=== PATIENT | female | born 1960 | race Caucasian/White ===

== ENCOUNTER → 2016-12-26 | Outpatient (CLI) | payer BC ==
[2016-12-26 19:25] LABS: BASO # 0.2 K/mm3 (0.0-0.2); BASO % 2.6 % (0.0-1.0); EOS # 0.3 K/mm3 (0.0-0.50); EOS % 3.9 % (0.0-3.0); LYMPH # 2.1 K/mm3 (1.5-4.5); LYMPH % 26.2 % (24.0-44.0); MEAN CORPUSCULAR HEMOGLOBIN 27.3 pg (27.0-33.0); MEAN CORPUSCULAR HGB CONC 32.6 g/dl (32.0-36.5); MEAN CORPUSCULAR VOLUME 83.8 fl (80.0-96.0); MONO # 0.6 K/mm3 (0.0-0.8); MONO % 8.2 % (0.0-5.0); NEUTROPHILS % 56.2 % (36.0-66.0); RED CELL DISTRIBUTION WIDTH 13.8 % (11.5-14.5); WHITE BLOOD COUNT 7.2 K/mm3 (4.0-10.0)
[2016-12-26 19:52] LABS: ANION GAP 10 MEQ/L (8-16); BLOOD UREA NITROGEN 16 MG/DL (7-18); CARBON DIOXIDE LEVEL 26 MEQ/L (21-32); CHLORIDE LEVEL 106 MEQ/L (98-107); CREATININE FOR GFR 0.68 MG/DL (0.55-1.02); GLOMERULAR FILTRATION RATE > 60.0 (>51); GLUCOSE, FASTING 100 MG/DL (70-105); POTASSIUM SERUM 3.5 MEQ/L (3.5-5.1); SODIUM LEVEL 142 MEQ/L (136-145)
== END | disposition home or self-care (01) ==
LOC: M LAB 17:52
PROVIDERS: ATTEND Internal Medicine Cardiovascular Disease
DX: I48.91 Unspecified atrial fibrillation (principal)

== ENCOUNTER → 2017-07-16 | Outpatient (CLI) | payer BC ==
[2017-07-16 11:20] LABS: MEAN CORPUSCULAR HEMOGLOBIN 29.6 pg (27.0-33.0); MEAN CORPUSCULAR HGB CONC 33.9 g/dl (32.0-36.5); MEAN CORPUSCULAR VOLUME 87.1 fl (80.0-96.0); RED CELL DISTRIBUTION WIDTH 13.5 % (11.5-14.5); WHITE BLOOD COUNT 6.4 K/mm3 (4.0-10.0)
[2017-07-16 11:48] LABS: ALBUMIN 3.4 GM/DL (3.2-5.2); ALKALINE PHOSPHATASE 65 U/L (45-117); ALT/SGPT 26 U/L (12-78); ANION GAP 10 MEQ/L (8-16); AST/SGOT 13 U/L (15-37); BILIRUBIN,TOTAL 0.3 MG/DL (0.2-1.0); BLOOD UREA NITROGEN 11 MG/DL (7-18); CALCIUM LEVEL 8.4 MG/DL (8.5-10.1); CARBON DIOXIDE LEVEL 28 MEQ/L (21-32); CHLORIDE LEVEL 108 MEQ/L (98-107); CHOLESTEROL LEVEL 177 MG/DL (<200); CREATININE FOR GFR 0.66 MG/DL (0.55-1.02); GLOMERULAR FILTRATION RATE > 60.0 (>51); GLUCOSE, FASTING 97 MG/DL (70-105); MAGNESIUM LEVEL 2.2 MG/DL (1.8-2.4); POTASSIUM SERUM 3.9 MEQ/L (3.5-5.1); SODIUM LEVEL 146 MEQ/L (136-145); T UPTAKE 33 % (30-39); THYROXINE (T4) 13.3 UG/DL (4.5-12.0); TOTAL PROTEIN 6.8 GM/DL (6.4-8.2); TRIGLYCERIDES LEVEL 112 MG/DL (<150); URIC ACID 4.2 MG/DL (2.6-6.0)
== END ==
LOC: M LAB 10:17
PROVIDERS: ATTEND Internal Medicine Cardiovascular Disease
DX: E03.9 Hypothyroidism, unspecified (principal); I48.0 Paroxysmal atrial fibrillation; I11.9 Hypertensive heart disease without heart failure

== ENCOUNTER → 2017-09-08 | Outpatient (CLI) | payer BC ==
--- NOTE | 2017-09-08 09:26 | REP ---
Chest two views HISTORY: Gallstones Comparison: 04/19/2016 The lungs are clear. The heart is normal in size. The pulmonary vasculature is normal in appearance. The bony structure is intact. IMPRESSION: No acute disease. Signed by César Gonzalez MD 09/08/2017 09:17 A
--- NOTE | 2017-09-08 10:53 | REP ---
RIGHT UPPER QUADRANT SONOGRAPHY: HISTORY: Gallstones. Comparison sonography March 20, 2006. Comparison CT study of the chest July 19, 2017. The CT study showed a large unequivocal partially calcified gallstone. SONOGRAPHIC FINDINGS: Scan quality is inhibited by patient body habitus and fatty infiltration with poor insonation of the liver. The gallbladder appears small and contracted around the stone. It is difficult to visualize. Common bile duct is normal measuring 0.4 cm in greatest diameter. No focal liver lesion is appreciated. Limited views of the pancreas show no abnormality. There is no evidence of ascites or right renal abnormality. The right kidney measures 11.7 x 5.9 x 6.4 cm. IMPRESSION: The gallbladder contracted around a large stones. Poor insonation of the liver due to fatty infiltration. Normal CBD. Signed by Cuco Urban MD 09/08/2017 03:09 P
== END ==
LOC: M RAD 08:14
PROVIDERS: ATTEND Internal Medicine Cardiovascular Disease
DX: K80.20 Calculus of gallbladder without cholecystitis without obstruction (principal)

== ENCOUNTER → 2017-10-10 | Outpatient (CLI) | payer BC ==
--- NOTE | 2017-10-10 09:47 | REP ---
DIAGNOSTIC MAMMOGRAM: Magnification views of the left breast are performed. Correlation made with recent mammogram of 10/02/2017 which showed new calcifications in the lower inner left breast. The magnification views confirm the presence of a cluster of multiple microcalcifications which vary in size and shape. Some have somewhat irregular margins. I cannot definitely characterize these as benign. I would recommend stereotactic biopsy, although this may prove difficult due to their posterior position. IMPRESSION: ACR IV suspicious. Clustered pleomorphic microcalcifications in the lower inner left breast are new compared to prior studies. Recommend stereotactic biopsy, although this may prove difficult due to their posterior position. BI-RADS/ACR category 4 mammogram. Suspicious abnormality - biopsy should be considered. Usually requires biopsy. This mammogram was interpreted with the aid of an FDA-approved computer-aided detection system. A. Negative x-ray reports should not delay biopsy if a dominant or clinically suspicious mass is present. B. Four to eight percent of cancers are not identified by x-ray. C. Adenosis and dense breasts may obscure an underlying neoplasm. The patient letter being requested is M4. Signed by Puneet Tejeda MD 10/10/2017 01:24 P
== END ==
LOC: M RAD 08:59
PROVIDERS: ATTEND Nurse Practitioner Women's Health
DX: R92.8 Other abnormal and inconclusive findings on diagnostic imaging of breast (principal)

== ENCOUNTER → 2017-11-06 | Outpatient (CLI) | payer BC ==
[~2017-11-06] MED LIST: LIDOCAINE 1% MDV 20ML VIAL As Ordered ONE
--- NOTE | 2017-11-06 16:57 | REP ---
STEREOTACTIC LEFT BREAST BIOPSY: The procedure was performed under the direct supervision of Dr. Tejeda. The patient has a history of clustered pleomorphic microcalcifications in the lower inner left breast seen on previous mammogram 10/10/2017. The risks and benefits of the procedure were explained to the patient and informed consent was obtained. A medial lateral approach was utilized. The calcifications are too far posterior and are unable to be visualized in the stereotactic field. The biopsy was unable to be performed. Reviewed by KAREN Mejía 11/07/2017 05:52 PEdited and Signed by Puneet Tejeda MD 11/08/2017 08:52 A
== END ==
LOC: M RADPRO 11:21
PROVIDERS: ATTEND Surgery
DX: R92.0 Mammographic microcalcification found on diagnostic imaging of breast (principal); Z97.8 Presence of other specified devices; Z86.79 Personal history of other diseases of the circulatory system; Z88.2 Allergy status to sulfonamides; Z88.1 Allergy status to other antibiotic agents; Z79.899 Other long term (current) drug therapy; Z53.9 Procedure and treatment not carried out, unspecified reason

== ENCOUNTER 2017-11-17 12:57 | Emergency (ER) | payer BC ==
[~2017-11-17] VITALS: Ht 160 cm; Wt 106.3 kg
[~2017-11-17 12:57] MED LIST changes: +AMLO25TA PO; +CALCCHW19 PO; +DIOV320T3 PO; +EFFE150C PO; +ELIQ5TAB PO; +FOLI5INJ2 PO; +HYDR-3363 PO; +LABE20TAB PO; +LASI20TA PO; -LIDOCAINE 1% MDV 20ML VIAL As Ordered ONE; +METH2.5TA PO; +NEXI40CA PO
[2017-11-17 13:36] LABS: BASO % 0.5 % (0.0-1.0); EOS # 0.2 10^3/uL (0.0-0.50); EOS % 1.9 % (0.0-3.0); IMMATURE GRANULOCYTE % 0.3 % (0-0); LYMPH # 1.9 10^3/uL (1.5-4.5); LYMPH % 22.1 % (24.0-44.0); MEAN CORPUSCULAR HEMOGLOBIN 28.5 pg (27.0-33.0); MEAN CORPUSCULAR HGB CONC 33.3 g/dl (32.0-36.5); MEAN CORPUSCULAR VOLUME 85.6 fl (80.0-96.0); MONO # 0.8 10^3/uL (0.0-0.8); NEUTROPHILS # 5.7 10^3/uL (1.8-7.7); NEUTROPHILS % 66.2 % (36.0-66.0); PLATELET COUNT, AUTOMATED 430 10^3/uL (150-450); RED CELL DISTRIBUTION WIDTH 14.1 % (11.5-14.5); WHITE BLOOD COUNT 8.6 10^3/uL (4.0-10.0)
[2017-11-17 13:56] LABS: INR 1.1
[2017-11-17 14:02] LABS: ALBUMIN 3.4 GM/DL (3.2-5.2); ALBUMIN/GLOBULIN RATIO 0.83 (1.00-1.93); ALKALINE PHOSPHATASE 74 U/L (45-117); ALT/SGPT 35 U/L (12-78); ANION GAP 7 MEQ/L (8-16); AST/SGOT 20 U/L (7-37); BILIRUBIN,DIRECT 0.1 MG/DL (0.0-0.2); BILIRUBIN,TOTAL 0.5 MG/DL (0.2-1.0); BLOOD UREA NITROGEN 15 MG/DL (7-18); CALCIUM LEVEL 8.7 MG/DL (8.5-10.1); CARBON DIOXIDE LEVEL 27 MEQ/L (21-32); CHLORIDE LEVEL 106 MEQ/L (98-107); CREATININE FOR GFR 0.71 MG/DL (0.55-1.02); GLOMERULAR FILTRATION RATE > 60.0 (>51); GLUCOSE, FASTING 156 MG/DL (70-105); POTASSIUM SERUM 3.8 MEQ/L (3.5-5.1); SODIUM LEVEL 140 MEQ/L (136-145); TOTAL PROTEIN 7.5 GM/DL (6.4-8.2)
[2017-11-17 14:04] LABS: FREE T4 1.31 NG/DL (0.76-1.46)
--- NOTE | 2017-11-17 14:33 | REP ---
PORTABLE CHEST X-RAY: Semi-erect AP view. HISTORY: Chest pain. COMPARISON STUDY: September 08, 2017. FINDINGS: EKG monitoring electrodes overlie the chest. A loop monitoring device is seen overlying the mediastinum as before. The lungs are well inflated and clear. Pleural angles are sharp. Heart size is normal. Pulmonary vasculature is not increased. IMPRESSION: Loop recorder is seen superimposed on the mediastinum. No acute disease. Signed by Cuco Urban MD 11/17/2017 03:58 P
[2017-11-17] MEDS ORDERED: LABE20TAB GT (14:42)
[2017-11-17] MEDS ORDERED: FUROSEMIDE 40 MG/4 ML VIAL (J1940) IV ONE (14:45)
[2017-11-17 15:08] VITALS: BP 135/63
--- NOTE | 2017-11-17 17:10 | ECGEPIP ---
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
--- NOTE | 2017-11-17 17:11 | ECGEPIP ---
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
== END 2017-11-17 15:04 | disposition home or self-care (01) ==
LOC: M ED 12:57
DX: R00.2 Palpitations (principal); R06.02 Shortness of breath; I10 Essential (primary) hypertension; F41.9 Anxiety disorder, unspecified; Z79.01 Long term (current) use of anticoagulants; Z79.899 Other long term (current) drug therapy; Z88.8 Allergy status to other drugs, medicaments and biological substances; Z88.1 Allergy status to other antibiotic agents; Z88.2 Allergy status to sulfonamides; Z82.49 Family history of ischemic heart disease and other diseases of the circulatory system; Z86.79 Personal history of other diseases of the circulatory system; Z98.890 Other specified postprocedural states
CPT/HCPCS: 36415; 71010; 80048; 80076; 82550; 82553; 83690; 83880; 84439; 85025; 85610; 93005; 93041; 94760; 96374; 99285; J1940

== ENCOUNTER 2017-12-05 08:10 | Day surgery (SDC) | payer BC ==
[~2017-12-05 08:10] MED LIST changes: -AMLO25TA PO; -CALCCHW19 PO; -DIOV320T3 PO; -EFFE150C PO; -ELIQ5TAB PO; -FOLI5INJ2 PO; -HYDR-3363 PO; -LABE20TAB PO; -LASI20TA PO; +LR 1,000 ML IV; -METH2.5TA PO; -NEXI40CA PO
[2017-12-05] MEDS: LIDOCAINE 5% (LIDODERM) PATCH TD (08:56)
[2017-12-05] MEDS ORDERED: LIDOCAINE 1% MDV 20ML VIAL As Ordered (09:35)
[2017-12-05] MEDS ORDERED: LIDOCAINE 2% INJ 100 MG/5 ML SDV (FOR ANES.) As Ordered (09:40)
[2017-12-05] MEDS ORDERED: MIDAZOLAM INJ 2 MG/2 ML VIAL (J2250) As Ordered ×2 (09:40→13:20)
[2017-12-05] MEDS ORDERED: PROPOFOL 200 MG/20 ML VIAL As Ordered ×4 (09:40→13:19)
[2017-12-05] MEDS ORDERED: fentaNYL 100 MCG/2 ML INJECTION (J3010) As Ordered ×2 (09:40→13:20)
[2017-12-05] MEDS ORDERED: KETAMINE HCL 200 MG/20 ML VIAL As Ordered (12:48)
[2017-12-05] MEDS: LIDOCAINE 1% SDV INJ 30 ML VIAL As Ordered ×2 (13:00→14:08)
[2017-12-05] MEDS ORDERED: dexameTHASONE 4 MG/ML 1ML VIAL (J1100) As Ordered (13:02)
[2017-12-05] MEDS ORDERED: ONDANSETRON 4MG/2ML VIAL (J2405) As Ordered (13:02)
[2017-12-05] MEDS ORDERED: FUROSEMIDE 100 MG/10 ML VIAL (J1940) As Ordered (13:20)
[2017-12-05] MEDS ORDERED: HYDROmorphone HCL 2 MG/ML 1ML VIAL (J1170) As Ordered (13:46)
[2017-12-05] MEDS: BUPIVACAINE HCL 0.25% 30 ML VIAL As Ordered (14:07)
[2017-12-05] MEDS ORDERED: ONDANSETRON 4MG/2ML VIAL (J2405) IV (14:45)
[2017-12-05] MEDS ORDERED: PERCOCET 5MG/325MG TAB PO (14:45)
[2017-12-05] MEDS ORDERED: ACETAMINOPHEN TAB 650MG DOSE (2X325MG) PO (14:45)
[2017-12-05] MEDS ORDERED: NORCO, ANEXSIA 5/325MG TABLET (HYDROcodone/ACETAMINOPHEN) PO (14:45)
[2017-12-05] MEDS ORDERED: MEPERIDINE INJ 25 MG/ML VIAL (J2175) IV (14:45)
[2017-12-05] MEDS ORDERED: LR 1,000 ML IV (14:45)
[2017-12-05] MEDS ORDERED: fentaNYL 100 MCG/2 ML INJECTION (J3010) IV (14:45)
[2017-12-05] MEDS ORDERED: METOCLOPRAMIDE INJ 10MG/2ML VIAL (J2765) IV (14:45)
[2017-12-06] MEDS ORDERED: LIDOCAINE 1% MDV 20ML VIAL As Ordered (05:11)
== END 2017-12-05 16:34 | disposition home or self-care (01) ==
LOC: M SDC 08:10
DX: R92.1 Mammographic calcification found on diagnostic imaging of breast (principal); I10 Essential (primary) hypertension; I48.0 Paroxysmal atrial fibrillation; R00.2 Palpitations; G47.33 Obstructive sleep apnea (adult) (pediatric); F41.9 Anxiety disorder, unspecified; F32.9 Major depressive disorder, single episode, unspecified; K21.9 Gastro-esophageal reflux disease without esophagitis; K80.20 Calculus of gallbladder without cholecystitis without obstruction; K44.9 Diaphragmatic hernia without obstruction or gangrene; R06.02 Shortness of breath; M06.9 Rheumatoid arthritis, unspecified; R06.83 Snoring; Z88.1 Allergy status to other antibiotic agents; Z88.2 Allergy status to sulfonamides; Z79.899 Other long term (current) drug therapy; Z79.01 Long term (current) use of anticoagulants; Z90.710 Acquired absence of both cervix and uterus
CPT/HCPCS: 19125

== ENCOUNTER 2018-03-25 19:45 | Emergency (ER) | payer BC ==
[2018-03-25] MEDS: ASPIRIN 81 MG CHEW TABLET PO (20:26)
[2018-03-25] MEDS: NS 1,000 ML IV ×2 (20:27→22:13)
[2018-03-25 20:30] LABS: BASO % 0.5 % (0.0-1.0); EOS # 0.2 10^3/uL (0.0-0.50); EOS % 2.4 % (0.0-3.0); HEMATOCRIT 40.2 % (36.0-47.0); HEMOGLOBIN 13.5 g/dl (12.0-15.5); IMMATURE GRANULOCYTE % 0.2 % (0-3.0); LYMPH # 2.6 10^3/uL (1.5-4.5); MEAN CORPUSCULAR HEMOGLOBIN 28.5 pg (27.0-33.0); MEAN CORPUSCULAR HGB CONC 33.6 g/dl (32.0-36.5); MONO # 0.8 10^3/uL (0.0-0.8); MONO % 9.7 % (0.0-5.0); NEUTROPHILS # 4.6 10^3/uL (1.8-7.7); NEUTROPHILS % 56.2 % (36.0-66.0); PLATELET COUNT, AUTOMATED 429 10^3/uL (150-450); RED BLOOD COUNT 4.73 10^6/uL (4.00-5.40); RED CELL DISTRIBUTION WIDTH 14.2 % (11.5-14.5); WHITE BLOOD COUNT 8.2 10^3/uL (4.0-10.0)
[2018-03-25] MEDS: VERAPAMIL HCL 5 MG/2 ML VIAL IV ×2 (20:33→21:54)
[2018-03-25] MEDS: amLODIPine 5 MG TAB PO (20:33)
[2018-03-25 20:44] LABS: PROTHROMBIN TIME 15.4 SECONDS (12.4-14.5)
[2018-03-25 20:58] LABS: ALBUMIN 3.6 GM/DL (3.2-5.2); ALBUMIN/GLOBULIN RATIO 0.97 (1.00-1.93); ALKALINE PHOSPHATASE 77 U/L (45-117); ALT/SGPT 29 U/L (12-78); ANION GAP 9 MEQ/L (8-16); AST/SGOT 18 U/L (7-37); BILIRUBIN,DIRECT < 0.1 MG/DL (0.0-0.2); BILIRUBIN,TOTAL 0.3 MG/DL (0.2-1.0); BLOOD UREA NITROGEN 14 MG/DL (7-18); CALCIUM LEVEL 8.9 MG/DL (8.5-10.1); CARBON DIOXIDE LEVEL 24 MEQ/L (21-32); CHLORIDE LEVEL 110 MEQ/L (98-107); CPK CREATINE PHOSPHOKINASE 188 U/L (26-192); CREATININE FOR GFR 0.77 MG/DL (0.55-1.30); GLOMERULAR FILTRATION RATE > 60.0 (>51); GLUCOSE, FASTING 135 MG/DL (70-100); POTASSIUM SERUM 3.9 MEQ/L (3.5-5.1); SODIUM LEVEL 143 MEQ/L (136-145); TOTAL PROTEIN 7.3 GM/DL (6.4-8.2); TROPONIN I < 0.02 NG/ML (< 0.10)
[2018-03-25 20:59] LABS: CK-MB VALUE MASS 1.9 NG/ML (<3.6); MB/CK RELATIVE INDEX 1.01 (< OR =4)
== END 2018-03-25 23:43 | disposition home or self-care (01) ==
LOC: M ED 19:45
DX: I48.91 Unspecified atrial fibrillation (principal); R06.02 Shortness of breath; Z88.8 Allergy status to other drugs, medicaments and biological substances; Z88.2 Allergy status to sulfonamides; Z79.899 Other long term (current) drug therapy; Z79.01 Long term (current) use of anticoagulants
CPT/HCPCS: 71045

== ENCOUNTER → 2018-06-24 | Outpatient (CLI) | payer BC ==
[2018-06-24 13:03] LABS: HEMATOCRIT 36.5 % (36.0-47.0); HEMOGLOBIN 11.9 g/dl (12.0-15.5); MEAN CORPUSCULAR HEMOGLOBIN 27.5 pg (27.0-33.0); MEAN CORPUSCULAR HGB CONC 32.6 g/dl (32.0-36.5); MEAN CORPUSCULAR VOLUME 84.3 fl (80.0-96.0); PLATELET COUNT, AUTOMATED 391 10^3/uL (150-450); RED BLOOD COUNT 4.33 10^6/uL (4.00-5.40); RED CELL DISTRIBUTION WIDTH 14.2 % (11.5-14.5); WHITE BLOOD COUNT 7.2 10^3/uL (4.0-10.0)
[2018-06-24 13:23] LABS: ANION GAP 7 MEQ/L (8-16); BLOOD UREA NITROGEN 10 MG/DL (7-18); CALCIUM LEVEL 8.5 MG/DL (8.5-10.1); CARBON DIOXIDE LEVEL 28 MEQ/L (21-32); CHLORIDE LEVEL 109 MEQ/L (98-107); CREATININE FOR GFR 0.69 MG/DL (0.55-1.30); GLOMERULAR FILTRATION RATE > 60.0 (>51); GLUCOSE, FASTING 104 MG/DL (70-100); POTASSIUM SERUM 3.9 MEQ/L (3.5-5.1); SODIUM LEVEL 144 MEQ/L (136-145)
== END ==
LOC: M LAB 12:32
DX: I48.91 Unspecified atrial fibrillation (principal)
CPT/HCPCS: 80048

== ENCOUNTER → 2018-09-27 | Outpatient (CLI) | payer BC ==
[~2018-09-27] MED LIST changes: +ISOVUE-370 76% 100ML VIAL (Q9967) As Ordered; -LR 1,000 ML IV
== END ==
LOC: M RAD 17:35
DX: R07.9 Chest pain, unspecified (principal); I31.3 Pericardial effusion (noninflammatory)
CPT/HCPCS: Q9967

== ENCOUNTER → 2018-11-14 | Outpatient (CLI) | payer BC ==
[~2018-11-14] MED LIST changes: +AMLO25TA PO; +CALCCHW19 PO; +DIOV320T3 PO; +EFFE150C2 PO; +ELIQ5TAB PO; +FOLI5INJ2 PO; +HYDR-3363 PO; -ISOVUE-370 76% 100ML VIAL (Q9967) As Ordered; +LABE20TAB GT; +LABE20TAB PO; +LASI20TA PO; +METH2.5T48 PO; +NEXI40CA PO; +NORV5TAB PO
[2018-11-14 14:00] LABS: APPEARANCE, URINE CLEAR (CLEAR); BACTERIA, URINE AUTO NEGATIVE (NEGATIVE); BILIRUBIN, URINE AUTO NEGATIVE (NEGATIVE); BLOOD, URINE BLOOD 1+ (NEGATIVE); COLOR, URINE STRAW (YELLOW); GLUCOSE, URINE (UA) AUTO NEGATIVE (NEGATIVE); KETONE, URINE AUTO NEGATIVE (NEGATIVE); LEUKOCYTE ESTERASE, URINE AUTO NEGATIVE (NEGATIVE); NITRITE, URINE AUTO NEGATIVE (NEGATIVE); PROTEIN, URINE AUTO NEGATIVE (NEGATIVE); RBC, URINE AUTO 2 /HPF (0-3); SPECIFIC GRAVITY URINE AUTO 1.009 (1.002-1.035); SQUAMOUS EPITHELIAL CELL UR AU 0 /HPF (0-6); UROBILINOGEN, URINE AUTO 0.2 mg/dL (0.0-2.0); WBC, URINE AUTO 2 /HPF (0-3)
[2018-11-14 14:07] LABS: BLOOD UREA NITROGEN 13 MG/DL (7-18); CALCIUM LEVEL 8.7 MG/DL (8.5-10.1); CARBON DIOXIDE LEVEL 29 MEQ/L (21-32); CHLORIDE LEVEL 105 MEQ/L (98-107); CREATININE FOR GFR 0.61 MG/DL (0.55-1.30); GLOMERULAR FILTRATION RATE > 60.0 (>51); GLUCOSE, FASTING 92 MG/DL (70-100); POTASSIUM SERUM 4.1 MEQ/L (3.5-5.1); SODIUM LEVEL 142 MEQ/L (136-145)
== END ==
LOC: M SMT 09:58
PROVIDERS: ATTEND Nurse Practitioner Women's Health
DX: R31.29 Other microscopic hematuria (principal)

== ENCOUNTER → 2018-11-23 | Outpatient (CLI) | payer BC ==
[~2018-11-23] MED LIST changes: +ISOVUE-370 76% 100ML VIAL (Q9967) As Ordered ONE; -LASI20TA PO; +LASI20TA3 PO
--- NOTE | 2018-11-23 20:22 | REP ---
Clinical: Microscopic hematuria. Technique: Axial precontrast, contrast enhanced, and delayed images of the abdomen and pelvis using 100 ml Isovue 370 intravenous contrast material with coronal and sagittal re-formations and 3-D volume rendered CT urogram. Findings: Evaluation of the urinary tract system in all phases of enhancement demonstrates normal symmetric renal enhancement and excretion to the collecting system. No perinephric stranding, hydroureteronephrosis, nephroureterolithiasis, cystic or mass lesion identified. Bilateral ureters and bladder are normal. Liver, spleen, pancreas, and bilateral adrenal glands are normal. Cholelithiasis noted. The enteric system is without obstruction or acute inflammatory process. Normal terminal ileum and appendix identified in the right lower quadrant. Pelvis demonstrates normal bladder and evidence for prior hysterectomy. No ascites. No free air. No adenopathy. Lung bases demonstrate small hiatal hernia and 9 mm centrally calcified posterior right middle lobe granuloma. Impression: 1. Normal urinary tract system in all phases of enhancement. 2. Cholelithiasis. 3. Evidence of prior hysterectomy. 4. Centrally calcified granuloma at the right lung base. Electronically Signed by Ralph Jennings MD 11/23/2018 08:15 P
== END ==
LOC: M RAD 16:58
PROVIDERS: ATTEND Nurse Practitioner Women's Health
DX: R31.29 Other microscopic hematuria (principal); K80.20 Calculus of gallbladder without cholecystitis without obstruction; R91.8 Other nonspecific abnormal finding of lung field
CPT/HCPCS: 74178; Q9967

== ENCOUNTER → 2018-12-18 | Outpatient (REF) | payer BC ==
[~2018-12-18] MED LIST changes: -ISOVUE-370 76% 100ML VIAL (Q9967) As Ordered ONE
[2018-12-18 18:57] LABS: AMORPHOUS SEDIMENT LARGE (NEGATIVE); APPEARANCE, URINE TURBID (CLEAR); BACTERIA, URINE AUTO NEGATIVE (NEGATIVE); BILIRUBIN, URINE AUTO NEGATIVE (NEGATIVE); BLOOD, URINE BLOOD 2+ (NEGATIVE); COLOR, URINE AMBER (YELLOW); GLUCOSE, URINE (UA) AUTO NEGATIVE (NEGATIVE); KETONE, URINE AUTO NEGATIVE (NEGATIVE); LEUKOCYTE ESTERASE, URINE AUTO NEGATIVE (NEGATIVE); MUCUS, URINE MODERATE (NEGATIVE); NITRITE, URINE AUTO NEGATIVE (NEGATIVE); PROTEIN, URINE AUTO 1+ mg/dL (NEGATIVE); RBC, URINE AUTO 10 /HPF (0-3); SPECIFIC GRAVITY URINE AUTO 1.024 (1.002-1.035); SQUAMOUS EPITHELIAL CELL UR AU 3 /HPF (0-6); UROBILINOGEN, URINE AUTO 0.2 mg/dL (0.0-2.0); WBC, URINE AUTO 0 /HPF (0-3)
== END ==
LOC: M SMT 17:12
PROVIDERS: ATTEND Nurse Practitioner Women's Health
DX: N39.0 Urinary tract infection, site not specified (principal)

== ENCOUNTER → 2019-03-25 | Outpatient (CLI) | payer BC ==
[2019-03-25 16:25] LABS: HEMATOCRIT 38.8 % (36.0-47.0); HEMOGLOBIN 12.1 g/dl (12.0-15.5); MEAN CORPUSCULAR HEMOGLOBIN 26.2 pg (27.0-33.0); MEAN CORPUSCULAR HGB CONC 31.2 g/dl (32.0-36.5); MEAN CORPUSCULAR VOLUME 84.2 fl (80.0-96.0); PLATELET COUNT, AUTOMATED 334 10^3/uL (150-450); RED BLOOD COUNT 4.61 10^6/uL (4.00-5.40); WHITE BLOOD COUNT 6.4 10^3/uL (4.0-10.0)
[2019-03-25 16:49] LABS: BLOOD UREA NITROGEN 9 MG/DL (7-18); CALCIUM LEVEL 8.5 MG/DL (8.5-10.1); CARBON DIOXIDE LEVEL 30 MEQ/L (21-32); CHLORIDE LEVEL 110 MEQ/L (98-107); CREATININE FOR GFR 0.63 MG/DL (0.55-1.30); GLOMERULAR FILTRATION RATE > 60.0 (>51); GLUCOSE, FASTING 103 MG/DL (70-100); POTASSIUM SERUM 3.9 MEQ/L (3.5-5.1); SODIUM LEVEL 144 MEQ/L (136-145)
== END ==
LOC: M LAB 15:45
PROVIDERS: ATTEND Internal Medicine Cardiovascular Disease
DX: I49.5 Sick sinus syndrome (principal); I48.0 Paroxysmal atrial fibrillation

== ENCOUNTER → 2019-05-08 | Outpatient (CLI) | payer BC ==
[2019-05-08 14:25] LABS: BLOOD UREA NITROGEN 12 MG/DL (7-18); CALCIUM LEVEL 8.4 MG/DL (8.5-10.1); CARBON DIOXIDE LEVEL 24 MEQ/L (21-32); CHLORIDE LEVEL 110 MEQ/L (98-107); CREATININE FOR GFR 0.75 MG/DL (0.55-1.30); GLOMERULAR FILTRATION RATE > 60.0 (>51); GLUCOSE, FASTING 110 MG/DL (70-100); NT-PRO BNP 96 PG/ML (<125); SODIUM LEVEL 143 MEQ/L (136-145)
== END ==
LOC: M LAB 13:13
PROVIDERS: ATTEND Internal Medicine Cardiovascular Disease
DX: I34.0 Nonrheumatic mitral (valve) insufficiency (principal); I48.0 Paroxysmal atrial fibrillation

== ENCOUNTER → 2019-07-03 | Outpatient (CLI) | payer BC ==
--- NOTE | 2019-07-03 08:15 | PFTRPT ---
Site: [facility], [address] [place] [address], [id number] ID: [id number] Name: AKANKSHA CHOPRA Visit Date: 07/03/2019 Second ID: [id number] Referring Doctor: CHE GANDHI M.D. Reviewing Doctor: Osmin Betancourt MD Aws Consultant: Mayte MCCARTHY RRT Age: 58 : 1960 Sex: Female Race: Height: 63.00 Inches Weight: 209.00 Lbs BSA: 1.97 Order IDs: [id number] Requested Test(s): <RESP-PFT.DLCO> Diagnosis: I50.32 test meet the ATS standards for acceptability and repeatability. IVC is less than 85% of VC. DLCO may be underestimated. Review Status: Not Reviewed Pre-Bronch Post-Bronch Pred Actual %Pred Actual %Chng SPIROMETRY FVC (L) 3.22 2.83 87 FEV1 (L) 2.50 2.34 93 FEV1/FVC (%) 78 83 105 FEF 25% (L/sec) 4.91 6.55 133 FEF 50% (L/sec) 3.67 3.32 90 FEF 75% (L/sec) 1.24 0.92 74 FEF 25-75% (L/sec) 2.35 2.46 104 FEF Max (L/sec) 6.22 6.78 109 FIVC (L) 2.81 FIF 50% (L/sec) 3.72 4.74 127 FIF Max (L/sec) 4.80 MVV (L/min) 90 71 78 Expiratory Time (sec) 6.92 Back Extrap Vol (L) 0.10 Time To FEFmax (sec) 0.088 LUNG VOLUMES SVC (L) 2.99 2.91 97 IC (L) 2.14 2.35 109 ERV (L) 0.85 0.56 66 TGV (L) 2.76 2.81 101 RV (Pleth) (L) 1.91 2.25 117 TLC (Pleth) (L) 4.90 5.16 105 RV/TLC (Pleth) (%) 39 44 111 DIFFUSION DLCOunc (ml/min/mmHg) 21.38 17.27 80 DL/VA (ml/min/mmHg/L) 4.36 4.63 106 VA (L) 4.90 3.73 76 BHT (sec) 10.83 IVC (L) 2.28 TLC (SB) (L) 3.88 AIRWAYS RESISTANCE Raw (cmH2O/L/s) 1.86 1.31 70 Gaw (L/s/cmH2O) 1.03 0.78 75 sRaw (cmH2O*s) 4.76 3.70 77 sGaw (1/cmH2O*s) 0.20 0.27 135
== END ==
LOC: M CARPUL 07:45
PROVIDERS: ATTEND Internal Medicine Cardiovascular Disease
DX: I50.32 Chronic diastolic (congestive) heart failure (principal)

== ENCOUNTER → 2019-07-07 | Outpatient (CLI) | payer BC ==
[2019-07-07 12:14] LABS: BLOOD UREA NITROGEN 14 MG/DL (7-18); CALCIUM LEVEL 8.3 MG/DL (8.5-10.1); CARBON DIOXIDE LEVEL 27 MEQ/L (21-32); CHLORIDE LEVEL 109 MEQ/L (98-107); CREATININE FOR GFR 0.75 MG/DL (0.55-1.30); GLOMERULAR FILTRATION RATE > 60.0 (>51); GLUCOSE, FASTING 124 MG/DL (70-100); MAGNESIUM LEVEL 2.1 MG/DL (1.8-2.4); POTASSIUM SERUM 3.8 MEQ/L (3.5-5.1); SODIUM LEVEL 143 MEQ/L (136-145)
== END ==
LOC: M LAB 11:17
PROVIDERS: ATTEND Internal Medicine Cardiovascular Disease
DX: I48.91 Unspecified atrial fibrillation (principal)

== ENCOUNTER → 2019-07-29 | Outpatient (CLI) | payer BC ==
[2019-07-29 13:02] LABS: HEMATOCRIT 42.2 % (36.0-47.0); HEMOGLOBIN 13.9 g/dl (12.0-15.5); MEAN CORPUSCULAR HEMOGLOBIN 28.1 pg (27.0-33.0); MEAN CORPUSCULAR HGB CONC 32.9 g/dl (32.0-36.5); MEAN CORPUSCULAR VOLUME 85.3 fl (80.0-96.0); PLATELET COUNT, AUTOMATED 348 10^3/uL (150-450); RED BLOOD COUNT 4.95 10^6/uL (4.00-5.40); WHITE BLOOD COUNT 6.4 10^3/uL (4.0-10.0)
[2019-07-29 13:34] LABS: ALBUMIN 3.6 GM/DL (3.2-5.2); ALT/SGPT 27 U/L (12-78); BILIRUBIN,TOTAL 0.5 MG/DL (0.2-1.0); BLOOD UREA NITROGEN 12 MG/DL (7-18); CALCIUM LEVEL 8.8 MG/DL (8.5-10.1); CARBON DIOXIDE LEVEL 29 MEQ/L (21-32); CHLORIDE LEVEL 108 MEQ/L (98-107); CREATININE FOR GFR 0.73 MG/DL (0.55-1.30); GLOMERULAR FILTRATION RATE > 60.0 (>51); GLUCOSE, FASTING 133 MG/DL (70-100); IRON (FE) 105 UG/DL (50-170); NT-PRO BNP 69 PG/ML (<125); POTASSIUM SERUM 3.4 MEQ/L (3.5-5.1); SODIUM LEVEL 144 MEQ/L (136-145); TOTAL PROTEIN 7.3 GM/DL (6.4-8.2)
== END ==
LOC: M WUC 11:12
PROVIDERS: ATTEND Internal Medicine Cardiovascular Disease
DX: I10 Essential (primary) hypertension (principal); I48.91 Unspecified atrial fibrillation; G47.30 Sleep apnea, unspecified; K21.9 Gastro-esophageal reflux disease without esophagitis

== ENCOUNTER → 2019-08-19 | Outpatient (CLI) | payer BC ==
[~2019-08-19] MED LIST changes: +GASTROGRAFIN SOLUTION 30ML (Q9963) As Ordered ONE; +ISOVUE-370 76% 100ML VIAL (Q9967) As Ordered ONE
--- NOTE | 2019-08-20 05:24 | REP ---
Clinical: Diverticulitis. Technique: Axial contrast enhanced images from the lung bases to the pubic symphysis using oral (per protocol) and 100 ml Isovue 370 intravenous contrast material with coronal and sagittal re-formations. Precontrast images of the abdomen obtained. Comparison: 11/23/2018. Findings: Fatty infiltration to the liver noted. Spleen, pancreas, bilateral adrenal glands and kidneys are normal. Cholelithiasis noted. Evaluation of the enteric system demonstrates scattered sigmoid diverticula without acute diverticulitis. Normal terminal ileum and appendix identified in the right lower quadrant. Pelvis demonstrates normal bladder and evidence of prior hysterectomy. No ascites. No free air. No adenopathy. Abdominal aorta without aneurysm. Musculoskeletal structures demonstrate age-related degenerative changes. Lung bases demonstrate stable calcified granulomata. Impression: 1. Hepatic steatosis. 2. Cholelithiasis. 3. Few scattered sigmoid diverticula without acute diverticulitis. Electronically Signed by Ralph Jennings MD 08/20/2019 05:15 A
== END ==
LOC: M RAD 16:10
PROVIDERS: ATTEND Internal Medicine Cardiovascular Disease
DX: K57.00 Diverticulitis of small intestine with perforation and abscess without bleeding (principal); K76.0 Fatty (change of) liver, not elsewhere classified; K80.20 Calculus of gallbladder without cholecystitis without obstruction
CPT/HCPCS: 74178; Q9963; Q9967

== ENCOUNTER → 2019-12-09 | Outpatient (CLI) | payer BC ==
[~2019-12-09] MED LIST changes: -GASTROGRAFIN SOLUTION 30ML (Q9963) As Ordered ONE
--- NOTE | 2019-12-10 04:16 | REP ---
Clinical: Follow up lung nodule. Technique: Axial contrast enhanced images from the thoracic inlet to the upper abdomen with coronal and sagittal re-formations using 100 ml Isovue 370 intravenous contrast material. Comparison: 09/27/2018, 07/19/2017. Findings: The bilateral lung weeks are well-aerated, relatively symmetric and essentially clear. Stable 1 cm calcified chronic benign granuloma at the right lung base is unchanged. No consolidation, significant nodule or mass lesion. No pleural effusion. No pneumothorax. Tracheobronchial tree is patent. Mediastinum demonstrates normal thoracic aorta, pulmonary vasculature, and heart/pericardium. Dual lead pacemaker noted. No pericardial effusion. No adenopathy. Musculoskeletal structures are intact without focal abnormality. Impression: Essentially normal contrast enhanced chest CT. No significant mediastinal or pleuroparenchymal process. Electronically Signed by Ralph Jennings MD 12/10/2019 04:08 A
== END ==
LOC: M RAD 17:35
PROVIDERS: ATTEND Internal Medicine Cardiovascular Disease
DX: R91.1 Solitary pulmonary nodule (principal)
CPT/HCPCS: 71260; Q9967

== ENCOUNTER → 2019-12-26 | Outpatient (CLI) | payer BC ==
[~2019-12-26] MED LIST changes: -ISOVUE-370 76% 100ML VIAL (Q9967) As Ordered ONE
[2019-12-26 10:00] LABS: ALBUMIN 3.4 GM/DL (3.2-5.2); ALT/SGPT 35 U/L (12-78); BILIRUBIN,TOTAL 0.4 MG/DL (0.2-1.0); BLOOD UREA NITROGEN 12 MG/DL (7-18); CALCIUM LEVEL 8.2 MG/DL (8.5-10.1); CARBON DIOXIDE LEVEL 26 MEQ/L (21-32); CHLORIDE LEVEL 111 MEQ/L (98-107); CREATININE FOR GFR 0.61 MG/DL (0.55-1.30); GLOMERULAR FILTRATION RATE > 60.0 (>51); GLUCOSE, FASTING 119 MG/DL (70-100); MAGNESIUM LEVEL 1.9 MG/DL (1.8-2.4); NT-PRO BNP 48 PG/ML (<125); POTASSIUM SERUM 3.7 MEQ/L (3.5-5.1); SODIUM LEVEL 143 MEQ/L (136-145); TOTAL PROTEIN 6.5 GM/DL (6.4-8.2)
== END ==
LOC: M WUC 08:32
PROVIDERS: ATTEND Internal Medicine Cardiovascular Disease
DX: I34.0 Nonrheumatic mitral (valve) insufficiency (principal)

== ENCOUNTER → 2020-01-11 | Outpatient (CLI) | payer BC ==
[2020-01-11 14:08] LABS: BASO # 0.1 10^3/uL (0.0-0.2); BASO % 0.8 % (0.0-1.0); EOS # 0.3 10^3/uL (0.0-0.5); EOS % 2.7 % (0.0-3.0); HEMOGLOBIN 13.4 g/dl (12.0-15.5); LYMPH # 2.2 10^3/uL (1.5-5.0); LYMPH % 20.9 % (24.0-44.0); MEAN CORPUSCULAR HEMOGLOBIN 28.1 pg (27.0-33.0); MEAN CORPUSCULAR HGB CONC 31.9 g/dl (32.0-36.5); MEAN CORPUSCULAR VOLUME 88.1 fl (80.0-96.0); MONO # 1.3 10^3/uL (0.0-0.8); MONO % 12.3 % (0.0-5.0); NEUTROPHILS # 6.5 10^3/uL (1.5-8.5); PLATELET COUNT, AUTOMATED 334 10^3/uL (150-450); RED BLOOD COUNT 4.77 10^6/uL (4.00-5.40); WHITE BLOOD COUNT 10.3 10^3/uL (4.0-10.0)
[2020-01-11 14:12] LABS: BLOOD UREA NITROGEN 10 MG/DL (7-18); CALCIUM LEVEL 8.4 MG/DL (8.5-10.1); CARBON DIOXIDE LEVEL 29 MEQ/L (21-32); CHLORIDE LEVEL 112 MEQ/L (98-107); CREATININE FOR GFR 0.56 MG/DL (0.55-1.30); GLOMERULAR FILTRATION RATE > 60.0 (>51); GLUCOSE, FASTING 116 MG/DL (70-100); MAGNESIUM LEVEL 2.3 MG/DL (1.8-2.4); SODIUM LEVEL 145 MEQ/L (136-145)
== END ==
LOC: M WUC 11:16
PROVIDERS: ATTEND Internal Medicine Cardiovascular Disease
DX: R07.9 Chest pain, unspecified (principal); I50.9 Heart failure, unspecified; I48.91 Unspecified atrial fibrillation

== ENCOUNTER → 2020-02-03 | Outpatient (CLI) | payer BC ==
[2020-02-03 16:50] LABS: APPEARANCE, URINE CLEAR (CLEAR); BACTERIA, URINE AUTO NEGATIVE (NEGATIVE); BILIRUBIN, URINE AUTO NEGATIVE (NEGATIVE); BLOOD, URINE BLOOD NEGATIVE (NEGATIVE); COLOR, URINE YELLOW (YELLOW); GLUCOSE, URINE (UA) AUTO NEGATIVE (NEGATIVE); KETONE, URINE AUTO NEGATIVE (NEGATIVE); LEUKOCYTE ESTERASE, URINE AUTO NEGATIVE (NEGATIVE); MUCUS, URINE SMALL (NEGATIVE); NITRITE, URINE AUTO NEGATIVE (NEGATIVE); PROTEIN, URINE AUTO 1+ mg/dL (NEGATIVE); RBC, URINE AUTO 3 /HPF (0-3); SPECIFIC GRAVITY URINE AUTO 1.027 (1.002-1.035); SQUAMOUS EPITHELIAL CELL UR AU 1 /HPF (0-6); UROBILINOGEN, URINE AUTO 0.2 mg/dL (0.0-2.0); WBC, URINE AUTO 1 /HPF (0-3)
[2020-02-03 16:55] LABS: HEMATOCRIT 40.4 % (36.0-47.0); HEMOGLOBIN 13.2 g/dl (12.0-15.5); MEAN CORPUSCULAR HEMOGLOBIN 28.8 pg (27.0-33.0); MEAN CORPUSCULAR HGB CONC 32.7 g/dl (32.0-36.5); MEAN CORPUSCULAR VOLUME 88.2 fl (80.0-96.0); PLATELET COUNT, AUTOMATED 351 10^3/uL (150-450); RED BLOOD COUNT 4.58 10^6/uL (4.00-5.40); WHITE BLOOD COUNT 7.5 10^3/uL (4.0-10.0)
[2020-02-03 17:21] LABS: ALBUMIN 3.7 GM/DL (3.2-5.2); ALT/SGPT 34 U/L (12-78); BILIRUBIN,TOTAL 0.4 MG/DL (0.2-1.0); BLOOD UREA NITROGEN 13 MG/DL (7-18); CALCIUM LEVEL 8.8 MG/DL (8.5-10.1); CARBON DIOXIDE LEVEL 27 MEQ/L (21-32); CHLORIDE LEVEL 111 MEQ/L (98-107); CHOLESTEROL LEVEL 179 MG/DL (<200); CHOLESTEROL RISK RATIO 5.774 (<5); CREATININE FOR GFR 0.59 MG/DL (0.55-1.30); GLOMERULAR FILTRATION RATE > 60.0 (>51); GLUCOSE, FASTING 101 MG/DL (70-100); HDL CHOLESTEROL 31 MG/DL (>40); LDL CHOLESTEROL 88 MG/DL (<100); NON-HDL-C 148 MG/DL; POTASSIUM SERUM 3.7 MEQ/L (3.5-5.1); SODIUM LEVEL 144 MEQ/L (136-145); TOTAL PROTEIN 6.9 GM/DL (6.4-8.2); TRIGLYCERIDES LEVEL 300 MG/DL (<150)
== END ==
LOC: M WUC 14:47
PROVIDERS: ATTEND Internal Medicine Cardiovascular Disease
DX: I48.0 Paroxysmal atrial fibrillation (principal); I11.9 Hypertensive heart disease without heart failure; N39.0 Urinary tract infection, site not specified

== ENCOUNTER → 2020-02-28 | Outpatient (CLI) | payer BC ==
[2020-02-28 09:16] LABS: BASO # 0.1 10^3/uL (0.0-0.2); BASO % 1.4 % (0.0-1.0); EOS # 0.2 10^3/uL (0.0-0.5); EOS % 4.5 % (0.0-3.0); HEMATOCRIT 40.9 % (36.0-47.0); LYMPH # 1.7 10^3/uL (1.5-5.0); LYMPH % 33.6 % (24.0-44.0); MEAN CORPUSCULAR HEMOGLOBIN 28.1 pg (27.0-33.0); MEAN CORPUSCULAR HGB CONC 31.8 g/dl (32.0-36.5); MEAN CORPUSCULAR VOLUME 88.5 fl (80.0-96.0); MONO # 0.5 10^3/uL (0.0-0.8); MONO % 9.7 % (0.0-5.0); NEUTROPHILS # 2.6 10^3/uL (1.5-8.5); NEUTROPHILS % 50.6 % (36.0-66.0); PLATELET COUNT, AUTOMATED 328 10^3/uL (150-450); RED BLOOD COUNT 4.62 10^6/uL (4.00-5.40); WHITE BLOOD COUNT 5.2 10^3/uL (4.0-10.0)
[2020-02-28 09:43] LABS: ALBUMIN 3.4 GM/DL (3.2-5.2); ALT/SGPT 24 U/L (12-78); C REACTIVE PROTEIN QUANTITATIV < 0.30 MG/DL (0.00-0.30); CREATININE FOR GFR 0.68 MG/DL (0.55-1.30); GLOMERULAR FILTRATION RATE > 60.0 (>51)
[2020-02-28 09:54] LABS: ERYTHROCYTE SEDIMENTATION RATE 14 mm/hr (0-30)
== END ==
LOC: M WUC 08:17
PROVIDERS: ATTEND Nurse Practitioner
DX: M06.09 Rheumatoid arthritis without rheumatoid factor, multiple sites (principal); Z79.899 Other long term (current) drug therapy

== ENCOUNTER → 2020-03-24 | Outpatient (CLI) | payer BC ==
[~2020-03-24] MED LIST changes: +ALLE180T33 PO; +HYDR-3715 PO; +SPIR50TA4 PO; +TRAZ-252 PO; +VALS1TAB67 PO; +VASC1CAP2 PO; +[UNRECOGNIZED DRUG - CODE] PO
== END ==
LOC: M LABSMTC 12:05
PROVIDERS: ATTEND Anesthesiology
DX: Z01.818 Encounter for other preprocedural examination (principal); Z11.59 Encounter for screening for other viral diseases

== ENCOUNTER 2020-03-25 13:14 | Day surgery (SDC) | payer BC ==
[~2020-03-25] VITALS: Ht 160 cm; Wt 105.7 kg
[~2020-03-25 13:14] MED LIST changes: -HYDR-3715 PO; +LIDOCAINE 2% 100MG/5ML SDV (FOR ANES.) As Ordered ONE; +LR 1,000 ML IV ONE; +MIDAZOLAM INJ 2MG/2ML VIAL (J2250 PER 1MG) As Ordered ONE; +ONDANSETRON 4MG/2ML VIAL As Ordered ONE; +ROCURONIUM BROMIDE 50 MG/5 ML VIAL As Ordered ONE; +SUGAMMADEX SODIUM 500 MG/5 ML VIAL (BRIDION) As Ordered ONE; +dexameTHASONE 4 MG/ML 1ML VIAL (J1100 PER 1MG) As Ordered ONE; +fentaNYL 250 MCG/5 ML INJECTION (J3010) As Ordered ONE; +propofoL 200 MG/20 ML VIAL As Ordered ONE
[2020-03-25] MEDS ORDERED: BUPIVACAINE HCL 0.25% 30ML VIAL As Ordered ONE (14:13)
[2020-03-25] MEDS ORDERED: ETOMIDATE INJ 20MG/10ML VIAL As Ordered ONE (15:02)
[2020-03-25] MEDS ORDERED: propofoL 200 MG/20 ML VIAL As Ordered ONE (15:03)
[2020-03-25] MEDS ORDERED: ePHEDrine SULFATE 25 MG/5 ML(5MG/ML) SYRINGE As Ordered ONE (15:03)
[2020-03-25] MEDS ORDERED: PHENYLephrine HCL 500 MCG/5 ML (100MCG/ML) SYRINGE (J2370) As Ordered ONE ×2 (15:03→15:16)
[2020-03-25] MEDS ORDERED: dexameTHASONE 4 MG/ML 1ML VIAL (J1100 PER 1MG) As Ordered ONE (15:07)
[2020-03-25] MEDS ORDERED: ACETAMINOPHEN 1000MG 100ML IV BTL (OFIRMEV) (J0131 PER 10MG) As Ordered ONE (15:22)
[2020-03-25] MEDS ORDERED: ROCURONIUM BROMIDE 50 MG/5 ML VIAL As Ordered ONE (15:39)
[2020-03-25] MEDS ORDERED: fentaNYL 100 MCG/2 ML INJECTION (J3010) As Ordered ONE ×2 (16:02→17:48)
[2020-03-25] MEDS ORDERED: METOPROLOL 5 MG/5 ML VIAL As Ordered ONE (16:19)
[2020-03-25] MEDS ORDERED: ONDANSETRON 4MG/2ML VIAL As Ordered ONE (17:47)
[2020-03-25] MEDS ORDERED: oxyCODONE 5MG TAB As Ordered ONE (17:48)
[2020-03-25] MEDS: fentaNYL 100 MCG/2 ML INJECTION (J3010) IV PRN ×4 (17:50→18:20)
[2020-03-25] MEDS: oxyCODONE 5MG TAB PO PRN ×2 (17:50→18:19)
[2020-03-25] MEDS ORDERED: ONDANSETRON 4MG/2ML VIAL IV PRN (18:15)
[2020-03-25] MEDS ORDERED: NORCO, ANEXSIA 5/325MG TABLET (HYDROcodone/ACETAMINOPHEN) PO PRN (18:15)
[2020-03-25] MEDS ORDERED: LR 1,000 ML IV SCH (18:15)
[2020-03-25] MEDS ORDERED: ACETAMINOPHEN TAB 650MG DOSE (2X325MG) PO PRN (18:15)
[2020-03-25] MEDS ORDERED: HYDR-3715 PO (18:27)
[2020-03-25 20:20] VITALS: BP 142/78
--- NOTE | 2020-03-27 09:24 | RO ---
DATE OF PROCEDURE: 03/25/2020 PREOPERATIVE DIAGNOSIS: Symptomatic gallstones. POSTOPERATIVE DIAGNOSIS: Cholelithiasis with acute and chronic cholecystitis. PROCEDURE PERFORMED: Laparoscopic cholecystectomy. SURGEON: Dr. Louis GROUNDS CLEANER: ANESTHESIA: General. INDICATIONS FOR THE PROCEDURE: Patient is a 59-year-old woman who has had ongoing symptoms of upper abdominal pain since last fall. CT and ultrasound done back in August had confirmed cholelithiasis. She is now for a laparoscopic cholecystectomy. OPERATIVE PROCEDURE: The patient was brought to the operating room and placed on the table in a supine position. She was placed under general endotracheal anesthesia. The patient's abdomen was prepped and draped in a sterile fashion. Initial entry was in the left upper quadrant. 0.25% Marcaine was infiltrated at the trocar sites as needed. A short transverse incision was made in the left upper quadrant and a Veress needle was inserted. After positive hanging drop test the abdomen was insufflated with carbon dioxide gas. A 5 mm port was placed over the 5 mm scope and this was advanced through the abdominal wall without difficulty. The abdominal wall was quite thick secondary to a thick layer of subcutaneous adipose tissue. Inspection in the abdomen revealed normal-appearing liver. Visualized portions of the small and large bowel appeared normal. There was abundant omental fat covering much of the bowel. An 11 mm port was placed along the midline approximately 6-8 cm above the umbilicus. Two 5 mm ports were placed in the right upper quadrant. The edge of the liver was elevated. There were some adhesions identified between the gallbladder and surrounding omentum. These required dissection using the hook cautery as they were fairly extensive. Once the adhesions were addressed it was clear that the gallbladder was contracted and quite firm, presumably from contained stone or stones. It was difficult to achieve purchase on the gallbladder with a grasper. The gallbladder was elevated and dissection continued. The gallbladder itself was quite thickened and there was marked scarring between the gallbladder and the liver and surrounding pericholecystic tissues. The peritoneum was incised using the hook cautery. Dissection then proceeded carefully through these pericholecystic tissues. Again, there was significant scarring identified and the dissection was slow. A small band of tissue was divided with the hook cautery. There was a pulsation identified in the proximal end of this consistent with a small arterial branch within this. This did not (dictation cut off) but was subsequently clipped with a hemoclip. With further dissection the cystic duct was clearly identified. This was somewhat short and certainly no more than 2 cm in length. The junction of the cystic duct and common bile duct was identified. After adequately exposing the cystic duct this was clipped and divided. The gallbladder was then dissected free from the gallbladder bed. There was significant scarring around the gallbladder and because of the stone burden manipulation of the gallbladder was more difficult, but slow progress was made and the gallbladder was dissected free completely. A single, very small hole into the gallbladder was created with release of a minimal amount of yellowish debris. This was irrigated. then removed. The gallbladder was placed in an Endopouch. The right upper quadrant was then copiously irrigated and inspected. There was no evidence of bleeding or bile leak. The abdomen was deflated and the trocars were removed. It was necessary to extend the skin and fascial incisions in the supraumbilical site to remove the gallbladder. This was made more difficult by the thickness of the abdominal wall and deeper retractors were required. Once the gallbladder was removed, there was one very firm stone clearly filling the entire gallbladder. This was sent for permanent pathology. The fascia was exposed and was closed with interrupted simple sutures of #1 Vicryl. The wound was irrigated. The skin incisions were then all closed with buried sutures of #4-0 Vicryl and Steri-Strips. Light dressings were applied. The patient tolerated the procedure well without apparent complication. She was awakened in the operating room, extubated and moved to the recovery room in stable condition.
== END 2020-03-25 20:20 | disposition home or self-care (01) ==
LOC: M SDC 13:14
PROVIDERS: ATTEND Surgery
DX: K80.12 Calculus of gallbladder with acute and chronic cholecystitis without obstruction (principal); L90.5 Scar conditions and fibrosis of skin; N32.89 Other specified disorders of bladder; I11.0 Hypertensive heart disease with heart failure; I48.91 Unspecified atrial fibrillation; I50.9 Heart failure, unspecified; Z95.0 Presence of cardiac pacemaker; K44.9 Diaphragmatic hernia without obstruction or gangrene; K21.9 Gastro-esophageal reflux disease without esophagitis; M06.9 Rheumatoid arthritis, unspecified; M54.9 Dorsalgia, unspecified; F41.9 Anxiety disorder, unspecified; F32.9 Major depressive disorder, single episode, unspecified; G47.30 Sleep apnea, unspecified; E66.9 Obesity, unspecified; Z68.41 Body mass index [BMI] 40.0-44.9, adult; Z98.890 Other specified postprocedural states; Z88.2 Allergy status to sulfonamides; Z88.1 Allergy status to other antibiotic agents; Z79.899 Other long term (current) drug therapy; Z79.01 Long term (current) use of anticoagulants
CPT/HCPCS: 47562; 88304; J0131; J1100; J2250; J2370; J2405; J3010

== ENCOUNTER → 2020-04-14 | Outpatient (CLI) | payer BC ==
[~2020-04-14] MED LIST changes: +HYDR-3715 PO; -LIDOCAINE 2% 100MG/5ML SDV (FOR ANES.) As Ordered ONE; -LR 1,000 ML IV ONE; -MIDAZOLAM INJ 2MG/2ML VIAL (J2250 PER 1MG) As Ordered ONE; -ONDANSETRON 4MG/2ML VIAL As Ordered ONE; -ROCURONIUM BROMIDE 50 MG/5 ML VIAL As Ordered ONE; -SUGAMMADEX SODIUM 500 MG/5 ML VIAL (BRIDION) As Ordered ONE; -dexameTHASONE 4 MG/ML 1ML VIAL (J1100 PER 1MG) As Ordered ONE; -fentaNYL 250 MCG/5 ML INJECTION (J3010) As Ordered ONE; -propofoL 200 MG/20 ML VIAL As Ordered ONE
--- NOTE | 2020-04-14 16:43 | REPMRS ---
Patient History The patient states she had a clinical breast exam in March 2020. No known family history of cancer. Benign radio exam breast specimen, December 05, 2017. Benign localization of breast nodule of the left breast, December 05, 2017. Benign cyst aspiration of the left breast, June 08, 2011. Benign US guided breast biopsy of the left breast, June 08, 2011. Benign stereotatic breast biopsy of the right breast, November 30, 2006. Benign US guided breast biopsy of the left breast, October 17, 2000. Took estrogen for 2 years 6 months. Patient had pacemaker put in 03/2019. 3D TOMOSYNTHESIS WAS PERFORMED. The [facility] lifetime risk for breast cancer is 6.9%. VOLPARA DENSITY B. Digital Woman Screen Mammo: April 14, 2020 - Exam #: [id number] Bilateral CC and MLO view(s) were taken. Technologist: Lise Hinds Technologist Prior study comparison: October 10, 2017, left breast digital mammo diagnostic unilateral, performed at [facility]. October 02, 2017, digital woman screen mammo performed at [facility]. FINDINGS: The breast tissue is heterogeneously dense. This may lower the sensitivity of mammography. There has been no change in the appearance of the mammogram from the prior studies. There is a moderate amount of residual fibroglandular tissue which is fairly symmetric. There is no interval development of dominant mass, areas of architectural distortion, or clustered microcalcification typical of malignancy. Assessment: BI-RADS/ACR category 1 mammogram. Negative Mammogram. Recommendation Routine screening mammogram in 1 year (for women over age 40). This mammogram was interpreted with the aid of an FDA-approved computer-aided dectection system. Electronically Signed By: Puneet Tejeda MD 04/14/20 [id number]
== END ==
LOC: M WHC 15:26
PROVIDERS: ATTEND Nurse Practitioner Women's Health
DX: Z12.31 Encounter for screening mammogram for malignant neoplasm of breast (principal)

== ENCOUNTER → 2020-07-28 | Outpatient (CLI) | payer BC ==
[~2020-07-28] MED LIST changes: +DILT180C70; +GABA-1171; +HYDR200T3; +IRBE150T7; +LEFL1TAB4; +METO50TA7
[2020-07-28 16:09] LABS: APPEARANCE, URINE CLEAR (CLEAR); BACTERIA, URINE AUTO NEGATIVE (NEGATIVE); BILIRUBIN, URINE AUTO NEGATIVE (NEGATIVE); BLOOD, URINE BLOOD NEGATIVE (NEGATIVE); COLOR, URINE YELLOW (YELLOW); GLUCOSE, URINE (UA) AUTO NEGATIVE (NEGATIVE); KETONE, URINE AUTO NEGATIVE (NEGATIVE); LEUKOCYTE ESTERASE, URINE AUTO NEGATIVE (NEGATIVE); MUCUS, URINE SMALL (NEGATIVE); NITRITE, URINE AUTO NEGATIVE (NEGATIVE); PROTEIN, URINE AUTO 1+ mg/dL (NEGATIVE); RBC, URINE AUTO 3 /HPF (0-3); SPECIFIC GRAVITY URINE AUTO 1.024 (1.002-1.035); SQUAMOUS EPITHELIAL CELL UR AU 1 /HPF (0-6); UROBILINOGEN, URINE AUTO 0.2 mg/dL (0.0-2.0); WBC, URINE AUTO 1 /HPF (0-3)
[2020-07-28 16:25] LABS: HEMOGLOBIN 13.3 g/dl (12.0-15.5); MEAN CORPUSCULAR HEMOGLOBIN 27.9 pg (27.0-33.0); MEAN CORPUSCULAR HGB CONC 31.7 g/dl (32.0-36.5); MEAN CORPUSCULAR VOLUME 88.1 fl (80.0-96.0); PLATELET COUNT, AUTOMATED 329 10^3/uL (150-450); RED BLOOD COUNT 4.77 10^6/uL (4.00-5.40); WHITE BLOOD COUNT 6.9 10^3/uL (4.0-10.0)
[2020-07-28 16:55] LABS: ALBUMIN 3.4 GM/DL (3.2-5.2); ALT/SGPT 27 U/L (12-78); BILIRUBIN,TOTAL 0.4 MG/DL (0.2-1.0); BLOOD UREA NITROGEN 15 MG/DL (7-18); CALCIUM LEVEL 8.4 MG/DL (8.5-10.1); CARBON DIOXIDE LEVEL 25 MEQ/L (21-32); CHLORIDE LEVEL 109 MEQ/L (98-107); CHOLESTEROL LEVEL 178 MG/DL (<200); CHOLESTEROL RISK RATIO 5.085 (<5); CREATININE FOR GFR 0.61 MG/DL (0.55-1.30); GLOMERULAR FILTRATION RATE > 60.0 (>51); GLUCOSE, FASTING 111 MG/DL (70-100); HDL CHOLESTEROL 35 MG/DL (>40); IRON (FE) 59 UG/DL (50-170); LDL CHOLESTEROL 103 MG/DL (<100); MAGNESIUM LEVEL 2.1 MG/DL (1.8-2.4); NON-HDL-C 143 MG/DL; POTASSIUM SERUM 4.1 MEQ/L (3.5-5.1); SODIUM LEVEL 141 MEQ/L (136-145); THYROID STIMULATING HORMONE 0.894 uIU/ML (0.358-3.740); TOTAL PROTEIN 6.6 GM/DL (6.4-8.2); TRIGLYCERIDES LEVEL 201 MG/DL (<150)
[2020-07-28 16:57] LABS: VITAMIN B12 LEVEL 272 PG/ML (247-911)
== END ==
LOC: M WUC 13:28
PROVIDERS: ATTEND Internal Medicine Cardiovascular Disease
DX: D64.9 Anemia, unspecified (principal)

== ENCOUNTER → 2020-09-30 | Outpatient (CLI) | payer BC | LOC: M LABSMTC 09:54 | PROVIDERS: ATTEND Anesthesiology | DX: Z20.828 Contact with and (suspected) exposure to other viral communicable diseases (principal) | CPT/HCPCS: C9803; U0003 ==

== ENCOUNTER 2020-10-05 11:46 | Day surgery (SDC) | payer BC ==
[~2020-10-05] VITALS: Ht 160 cm; Wt 103.8 kg
[~2020-10-05 11:46] MED LIST changes: +LIDOCAINE 2% 100MG/5ML SDV (FOR ANES.) As Ordered ONE; +NS 1,000 ML IV ONE; +fentaNYL 100 MCG/2 ML INJECTION (J3010) As Ordered ONE; +propofoL 500 MG/50 ML VIAL As Ordered ONE
[2020-10-05] MEDS ORDERED: ONDANSETRON 4MG/2ML VIAL As Ordered ONE (12:47)
--- NOTE | 2020-10-05 13:22 | ROOR ---
Patient Name: Mackenzie Swann Procedure Date: 10/05/2020 12:24 PM Date of : 1960 Age: 59 Room: [facility] Gender: Female Note Status: Finalized Procedure: Upper GI endoscopy Indications: Dyspepsia, Heartburn Providers: Juan Manuel Granados MD Referring MD: Flakito Castillo MD Requesting Provider: Medicines: Monitored Anesthesia Care Complications: No immediate complications. Procedure: Pre-Anesthesia Assessment: - Prior to the procedure, a History and Physical was performed, and patient medications and allergies were reviewed. The patient is competent. The risks and benefits of the procedure and the sedation options and risks were discussed with the patient. All questions were answered and informed consent was obtained. Patient identification and proposed procedure were verified by the physician, the nurse and the anesthesiologist in the procedure room. Mental Status Examination: alert and oriented. Airway Examination: normal oropharyngeal airway and neck mobility. Respiratory Examination: clear to auscultation. CV Examination: normal. Prophylactic Antibiotics: The patient does not require prophylactic antibiotics. Prior Anticoagulants: The patient has taken Eliquis (apixaban), last dose was 2 days prior to procedure. ASA Grade Assessment: II - A patient with mild systemic disease. After reviewing the risks and benefits, the patient was deemed in satisfactory condition to undergo the procedure. The anesthesia plan was to use monitored anesthesia care (MAC). Immediately prior to administration of medications, the patient was re-assessed for adequacy to receive sedatives. The heart rate, respiratory rate, oxygen saturations, blood pressure, adequacy of pulmonary ventilation, and response to care were monitored throughout the procedure. The physical status of the patient was re-assessed after the procedure. The Endoscope was introduced through the mouth, and advanced to the third part of duodenum. The upper GI endoscopy was accomplished without difficulty. The patient tolerated the procedure well. Findings: The Z-line was regular and was found 39 cm from the incisors. The examined esophagus was normal. One 8 mm sessile polyp with no bleeding and no stigmata of recent bleeding was found in the gastric fundus. Biopsies were taken with a cold forceps for histology. Verification of patient identification for the specimen was done by the physician and nurse using the patient's name, date and medical record number. Estimated blood loss was minimal. Scattered moderate inflammation characterized by erythema and granularity was found in the gastric antrum. Biopsies were taken with a cold forceps for Helicobacter pylori testing. Biopsies were taken with a cold forceps for histology. The ampulla, duodenal bulb, second portion of the duodenum and third portion of the duodenum were normal. Biopsies for histology were taken with a cold forceps for evaluation of celiac disease. Impression: - Z-line regular, 39 cm from the incisors. - Normal esophagus. - One gastric polyp. Biopsied. - Gastritis. Biopsied. - Normal ampulla, duodenal bulb, second portion of the duodenum and third portion of the duodenum. Biopsied. Recommendation: - Patient has a contact number available for emergencies. The signs and symptoms of potential delayed complications were discussed with the patient. Return to normal activities tomorrow. Written discharge instructions were provided to the patient. - High fiber diet. - Continue present medications. - Resume Eliquis (apixaban) at prior dose today. Refer to primary physician for further adjustment of therapy. - Follow an antireflux regimen. - Await pathology results. - Repeat upper endoscopy after studies are complete for surveillance based on fundic gland polyp biopsy results. - Telephone GI clinic for pathology results in 2 weeks. - Return to primary care physician. Juan Manuel Granados MD Juan Manuel Granados MD 10/05/2020 1:21:42 PM Electronically signed by Juan Manuel Granados MD Number of Addenda: 0 Note Initiated On: 10/05/2020 12:24 PM Estimated Blood Loss: Estimated blood loss was minimal.
[2020-10-05 13:30] VITALS: BP 150/73
--- NOTE | 2020-10-05 13:58 | ROOR ---
Patient Name: Mackenzie Swann Procedure Date: 10/05/2020 12:24 PM Date of : 1960 Age: 59 Room: [facility] Gender: Female Note Status: Finalized Procedure: Colonoscopy Indications: Chronic diarrhea Providers: Juan Manuel Granados MD Referring MD: Flakito Castillo MD Requesting Provider: Medicines: Monitored Anesthesia Care Complications: No immediate complications. Procedure: Pre-Anesthesia Assessment: - Prior to the procedure, a History and Physical was performed, and patient medications and allergies were reviewed. The patient is competent. The risks and benefits of the procedure and the sedation options and risks were discussed with the patient. All questions were answered and informed consent was obtained. Patient identification and proposed procedure were verified by the physician, the nurse and the anesthesiologist in the procedure room. Mental Status Examination: alert and oriented. Airway Examination: normal oropharyngeal airway and neck mobility. Respiratory Examination: clear to auscultation. CV Examination: normal. Prophylactic Antibiotics: The patient does not require prophylactic antibiotics. Prior Anticoagulants: The patient has taken Eliquis (apixaban), last dose was 2 days prior to procedure. ASA Grade Assessment: II - A patient with mild systemic disease. After reviewing the risks and benefits, the patient was deemed in satisfactory condition to undergo the procedure. The anesthesia plan was to use monitored anesthesia care (MAC). Immediately prior to administration of medications, the patient was re-assessed for adequacy to receive sedatives. The heart rate, respiratory rate, oxygen saturations, blood pressure, adequacy of pulmonary ventilation, and response to care were monitored throughout the procedure. The physical status of the patient was re-assessed after the procedure. The Colonoscope was introduced through the anus and advanced to the terminal ileum, with identification of the appendiceal orifice and IC valve. The colonoscopy was performed without difficulty. The patient tolerated the procedure well. The quality of the bowel preparation was good. The terminal ileum, ileocecal valve, appendiceal orifice, and rectum were photographed. Scope insertion time was 3 minutes. Scope withdrawal time was 9 minutes. The total duration of the procedure was 15 minutes. Findings: The perianal and digital rectal examinations were normal. The terminal ileum appeared normal. A 10 mm polyp was found in the cecum. The polyp was sessile. The polyp was removed with a cold snare. Resection and retrieval were complete. To close a defect after polypectomy, one hemostatic clip was successfully placed. There was no bleeding at the end of the procedure. Verification of patient identification for the specimen was done by the physician and nurse using the patient's name, date and medical record number. Estimated blood loss was minimal. A 6 mm polyp was found in the recto-sigmoid colon. The polyp was sessile. The polyp was removed with a cold biopsy forceps. Resection and retrieval were complete. Normal mucosa was found in the entire colon. Biopsies for histology were taken with a cold forceps from the right colon, left colon and rectosigmoid colon for evaluation of microscopic colitis. Non-bleeding external and internal hemorrhoids were found during retroflexion. The hemorrhoids were medium-sized. Impression: - The examined portion of the ileum was normal. - One 10 mm polyp in the cecum, removed with a cold snare. Resected and retrieved. Clip was placed. - One 6 mm polyp at the recto-sigmoid colon, removed with a cold biopsy forceps. Resected and retrieved. - Normal mucosa in the entire examined colon. Biopsied. - Non-bleeding external and internal hemorrhoids. Recommendation: - Patient has a contact number available for emergencies. The signs and symptoms of potential delayed complications were discussed with the patient. Return to normal activities tomorrow. Written discharge instructions were provided to the patient. - High fiber diet. - Continue present medications. - Resume Eliquis (apixaban) at prior dose today. Refer to primary physician for further adjustment of therapy. - Await pathology results. - Repeat colonoscopy in 3 - 5 years for surveillance based on pathology results. - Telephone GI clinic for pathology results in 2 weeks. - Return to primary care physician. Juan Manuel Granados MD Juan Manuel Granados MD 10/05/2020 1:57:44 PM Electronically signed by Juan Manuel Granados MD Number of Addenda: 0 Note Initiated On: 10/05/2020 12:24 PM Estimated Blood Loss: Estimated blood loss was minimal.
== END 2020-10-05 14:18 | disposition home or self-care (01) ==
LOC: M SDC 11:46
PROVIDERS: ATTEND Internal Medicine Gastroenterology
DX: R13.10 Dysphagia, unspecified (principal); K31.7 Polyp of stomach and duodenum; K29.70 Gastritis, unspecified, without bleeding; R12 Heartburn; R19.7 Diarrhea, unspecified; K64.8 Other hemorrhoids; K63.5 Polyp of colon; K52.9 Noninfective gastroenteritis and colitis, unspecified; K44.9 Diaphragmatic hernia without obstruction or gangrene; G47.30 Sleep apnea, unspecified; I48.91 Unspecified atrial fibrillation; Z95.0 Presence of cardiac pacemaker; Z88.2 Allergy status to sulfonamides; Z88.8 Allergy status to other drugs, medicaments and biological substances; Z79.01 Long term (current) use of anticoagulants; F41.9 Anxiety disorder, unspecified; F32.9 Major depressive disorder, single episode, unspecified
CPT/HCPCS: 43239; 45380; 45385; 88305; J2405; J3010

== ENCOUNTER → 2021-08-17 | Outpatient (CLI) | payer BC ==
[~2021-08-17] MED LIST changes: -LIDOCAINE 2% 100MG/5ML SDV (FOR ANES.) As Ordered ONE; -NS 1,000 ML IV ONE; -fentaNYL 100 MCG/2 ML INJECTION (J3010) As Ordered ONE; -propofoL 500 MG/50 ML VIAL As Ordered ONE
--- NOTE | 2021-08-17 11:24 | REPMRS ---
Patient History The patient states she had a clinical breast exam in July 2021. No known family history of cancer. Benign radio exam breast specimen, December 05, 2017. Benign localization of breast nodule of the left breast, December 05, 2017. Benign cyst aspiration of the left breast, June 08, 2011. Benign US guided breast biopsy of the left breast, June 08, 2011. Benign stereotatic breast biopsy of the right breast, November 30, 2006. Benign US guided breast biopsy of the left breast, October 17, 2000. Took estrogen for 2 years 6 months. Patient states no breast complaints today. Patient has signed MRS History Sheet. Digital Woman Screen Mammo: August 17, 2021 - Exam #: [id number] Bilateral CC and MLO view(s) were taken. Technologist: Ingrid Boo, Technologist Prior study comparison: April 14, 2020, bilateral digital woman screen mammo performed at [facility]. October 10, 2017, left breast digital mammo diagnostic unilateral, performed at [facility]. FINDINGS: There are scattered fibroglandular densities. Screening. Digital screening (2D) mammography was performed bilaterally in the CC and MLO projections. Additionally, breast tomosynthesis (3D mammography) was performed bilaterally in the CC and MLO projections. Todays exam was compared to the prior exam/exams. By history, the patient has no complaints of a palpable breast abnormality or other significant breast complaints. The breasts are unchanged in size and shape.There are two biopsy clips in the left breast and one biopsy clip in the right breast. There is a stable circumscribed, isodense mass in the left breast, containing a biopsy clip. There are no mickie-soft tissue densities or spiculated masses. There is no internal architectural distortion. There are no suspicious mickie-calcific clusters. Skin thickening or nipple retraction is not present. There is a pacemaker device in the left axilla. The Volpara volumetric breast density category is B, there are scattered areas of fibroglandular densities. IMPRESSION: BI-RADS Category 2- Benign Findings. There is no evidence of malignant alteration of the breasts. Followup examination recommended in one year. This mammogram was read with the assistance of Text[employer],an FDA approved computer aided detection system for mammography. The lifetime Tyrer-Cuzick score is 6.7% Negative x-ray reports should not delay surgical consultation if a dominant or clinically suspicious mass is present. Not all breast cancers can be identified by mammography. Therefore, we recommend that you continue to perform regular breast self-examination and physical examination and then promptly contact your physician of any concerns or changes. Adenosis and dense breasts may obscure an underlying neoplasm. No significant changes when compared with prior studies. Assessment: BI-RADS/ACR category 2 mammogram. Benign Findings. Recommendation Routine screening mammogram of both breasts in 1 year. Electronically Signed By: Miguel A Obrien MD 08/17/21 1125
== END ==
LOC: M WHC 07:22
PROVIDERS: ATTEND Nurse Practitioner Women's Health
DX: Z12.31 Encounter for screening mammogram for malignant neoplasm of breast (principal)

== ENCOUNTER → 2021-09-20 | Outpatient (CLI) | payer BC ==
[2021-09-20 17:10] LABS: ALBUMIN 3.5 GM/DL (3.2-5.2); BILIRUBIN,DIRECT 0.1 MG/DL (0.0-0.2); BILIRUBIN,TOTAL 0.4 MG/DL (0.2-1.0); TOTAL PROTEIN 6.7 GM/DL (6.4-8.2)
== END ==
LOC: M WUC 13:46
PROVIDERS: ATTEND Internal Medicine Gastroenterology
DX: R12 Heartburn (principal)

== ENCOUNTER → 2021-09-22 | Outpatient (REF) | payer BC ==
[2021-09-22 14:12] LABS: CLOSTRIDIUM DIFFICILE PCR NEGATIVE (NEGATIVE)
== END ==
LOC: M LAB REF 12:30
PROVIDERS: ATTEND Internal Medicine Gastroenterology
DX: R12 Heartburn (principal)

== ENCOUNTER → 2021-11-30 | Outpatient (CLI) | payer BC ==
[2021-11-30 13:02] LABS: HEMOGLOBIN A1c 5.6 %
[2021-11-30 13:23] LABS: ALBUMIN 3.6 GM/DL (3.2-5.2); ALT/SGPT 34 U/L (12-78); BILIRUBIN,TOTAL 0.5 MG/DL (0.2-1.0); BLOOD UREA NITROGEN 14 MG/DL (7-18); CARBON DIOXIDE LEVEL 27 MEQ/L (21-32); CHLORIDE LEVEL 107 MEQ/L (98-107); CHOLESTEROL LEVEL 179 MG/DL (<200); CREATININE FOR GFR 0.68 MG/DL (0.55-1.30); GLOMERULAR FILTRATION RATE > 60.0 (>45); GLUCOSE, FASTING 119 MG/DL (70-100); HDL CHOLESTEROL 38 MG/DL (>40); LDL CHOLESTEROL 109 MG/DL (<100); NON-HDL-C 141 MG/DL; POTASSIUM SERUM 3.9 MEQ/L (3.5-5.1); SODIUM LEVEL 141 MEQ/L (136-145); TOTAL 25(OH) VITAMIN D 33.4 NG/ML (30.0-100.0); TOTAL PROTEIN 7.1 GM/DL (6.4-8.2); TRIGLYCERIDES LEVEL 158 MG/DL (<150)
== END ==
LOC: M WUC 09:25
PROVIDERS: ATTEND Student in an Organized Health Care Education/Training Program
DX: Z00.00 Encounter for general adult medical examination without abnormal findings (principal)

== ENCOUNTER → 2022-02-08 | Outpatient (REF) | LOC: M PLAIMG 12:02 | PROVIDERS: ATTEND Internal Medicine | DX: Z00.00 Encounter for general adult medical examination without abnormal findings (principal) ==

== ENCOUNTER → 2022-04-02 | Outpatient (REF) | payer OTHER ==
[2022-04-02 18:33] LABS: RSV AMPLIFICATION NEGATIVE (NEGATIVE)
== END ==
LOC: M WUC 17:45
PROVIDERS: ATTEND Physician Assistant
DX: R50.9 Fever, unspecified (principal)

== ENCOUNTER → 2022-05-28 | Outpatient (CLI) | payer OTHER | LOC: M SLEEP 20:03 | PROVIDERS: ATTEND Nurse Practitioner Family | DX: G47.33 Obstructive sleep apnea (adult) (pediatric) (principal) ==

== ENCOUNTER → 2022-06-06 | Outpatient (CLI) | payer OTHER ==
[2022-06-06 17:22] LABS: ALBUMIN 3.5 GM/DL (3.2-5.2); ALT/SGPT 23 U/L (12-78); BILIRUBIN,DIRECT 0.1 MG/DL (0.0-0.2); BILIRUBIN,TOTAL 0.4 MG/DL (0.2-1.0); BLOOD UREA NITROGEN 8 MG/DL (7-18); CALCIUM LEVEL 8.6 MG/DL (8.8-10.2); CARBON DIOXIDE LEVEL 29 MEQ/L (21-32); CHLORIDE LEVEL 108 MEQ/L (98-107); CHOLESTEROL LEVEL 122 MG/DL (<200); CHOLESTEROL RISK RATIO 3.128 (<5); CREATININE FOR GFR 0.78 MG/DL (0.55-1.30); GLOMERULAR FILTRATION RATE > 60.0 (>45); GLUCOSE, FASTING 120 MG/DL (70-100); HDL CHOLESTEROL 39 MG/DL (>40); LDH LACTATE DEHYDROGENASE 220 U/L (84-246); LDL CHOLESTEROL 58 MG/DL (<100); NON-HDL-C 83 MG/DL; POTASSIUM SERUM 3.6 MEQ/L (3.5-5.1); SODIUM LEVEL 141 MEQ/L (136-145); THYROXINE (T4) 9.5 UG/DL (4.5-12.0); TOTAL PROTEIN 6.9 GM/DL (6.4-8.2); TRIGLYCERIDES LEVEL 127 MG/DL (<150)
== END ==
LOC: M WUC 09:38
DX: E78.5 Hyperlipidemia, unspecified (principal); I10 Essential (primary) hypertension; I48.91 Unspecified atrial fibrillation

== ENCOUNTER → 2022-08-22 | Outpatient (CLI) | payer OTHER ==
[2022-08-22 13:35] LABS: BASO # 0.1 10^3/uL (0.0-0.2); BASO % 0.9 % (0.0-1.0); EOS # 0.2 10^3/uL (0.0-0.5); EOS % 1.7 % (0.0-3.0); HEMATOCRIT 43.5 % (36.0-47.0); HEMOGLOBIN 13.6 g/dl (12.0-15.5); LYMPH # 3.3 10^3/uL (1.5-5.0); LYMPH % 34.2 % (24.0-44.0); MEAN CORPUSCULAR HEMOGLOBIN 28.3 pg (27.0-33.0); MEAN CORPUSCULAR HGB CONC 31.3 g/dl (32.0-36.5); MEAN CORPUSCULAR VOLUME 90.6 fl (80.0-96.0); MONO # 1.2 10^3/uL (0.0-0.8); NEUTROPHILS # 4.8 10^3/uL (1.5-8.5); NEUTROPHILS % 49.9 % (36.0-66.0); PLATELET COUNT, AUTOMATED 300 10^3/uL (150-450); WHITE BLOOD COUNT 9.5 10^3/uL (4.0-10.0)
[2022-08-22 14:06] LABS: ERYTHROCYTE SEDIMENTATION RATE 10 mm/hr (0-30)
[2022-08-22 15:25] LABS: APPEARANCE, URINE MANUAL CLEAR (CLEAR); BILIRUBIN, URINE MANUAL NEGATIVE (NEGATIVE); BLOOD URINE MANUAL NEGATIVE (NEGATIVE); COLOR, URINE MANUAL YELLOW (YELLOW); GLUCOSE, URINE (UA) MANUAL NEGATIVE (NEGATIVE); KETONE, URINE MANUAL NEGATIVE (NEGATIVE); LEUKOCYTE ESTERASE, URINE MAN NEGATIVE (NEGATIVE); NITRITE, URINE MANUAL NEGATIVE (NEGATIVE); PROTEIN, URINE MANUAL NEGATIVE (NEGATIVE); UROBILINOGEN, URINE MANUAL NORMAL (NORMAL)
[2022-08-22 15:39] LABS: ALBUMIN 3.7 GM/DL (3.2-5.2); ALT/SGPT 29 U/L (12-78); BILIRUBIN,TOTAL 0.4 MG/DL (0.2-1.0); BLOOD UREA NITROGEN 18 MG/DL (7-18); CALCIUM LEVEL 9.2 MG/DL (8.8-10.2); CARBON DIOXIDE LEVEL 29 MEQ/L (21-32); CHLORIDE LEVEL 103 MEQ/L (98-107); CREATININE FOR GFR 0.82 MG/DL (0.55-1.30); FREE T4 1.13 NG/DL (0.76-1.46); GLOMERULAR FILTRATION RATE > 60.0 (>45); GLUCOSE, FASTING 85 MG/DL (70-100); POTASSIUM SERUM 3.8 MEQ/L (3.5-5.1); SODIUM LEVEL 139 MEQ/L (136-145); THYROID STIMULATING HORMONE 0.874 uIU/ML (0.358-3.740); TOTAL PROTEIN 7.4 GM/DL (6.4-8.2)
[2022-08-22 16:17] LABS: ESTRADIOL < 19.0 PG/ML; FOLLICLE STIMULATING HORMONE 35.4 mIU/mL; LUTEINIZING HORMONE 23.2 mIU/mL
== END ==
LOC: M PLALAB 09:39
PROVIDERS: ATTEND Family Medicine
DX: R23.2 Flushing (principal); R61 Generalized hyperhidrosis

== ENCOUNTER → 2022-08-23 | Outpatient (CLI) | payer OTHER | LOC: M WHC 12:56 | PROVIDERS: ATTEND Student in an Organized Health Care Education/Training Program | DX: Z12.31 Encounter for screening mammogram for malignant neoplasm of breast (principal) ==

== ENCOUNTER → 2022-08-26 | Outpatient (CLI) | payer OTHER | LOC: M WUC 13:05 | PROVIDERS: ATTEND Family Medicine | DX: Z11.1 Encounter for screening for respiratory tuberculosis (principal) ==

== ENCOUNTER → 2022-08-31 | Outpatient (CLI) | payer OTHER | LOC: M WUC 15:05 | PROVIDERS: ATTEND Physician Assistant | DX: L40.0 Psoriasis vulgaris (principal) ==

== ENCOUNTER → 2022-09-26 | Outpatient (CLI) | payer OTHER ==
[2022-09-26 13:08] LABS: BASO # 0.1 10^3/uL (0.0-0.2); BASO % 1.3 % (0.0-1.0); EOS # 0.4 10^3/uL (0.0-0.5); EOS % 5.4 % (0.0-3.0); HEMATOCRIT 40.1 % (36.0-47.0); HEMOGLOBIN 12.9 g/dl (12.0-15.5); LYMPH # 1.7 10^3/uL (1.5-5.0); MEAN CORPUSCULAR HEMOGLOBIN 29.2 pg (27.0-33.0); MEAN CORPUSCULAR HGB CONC 32.2 g/dl (32.0-36.5); MEAN CORPUSCULAR VOLUME 90.7 fl (80.0-96.0); MONO # 0.8 10^3/uL (0.0-0.8); MONO % 11.5 % (2.0-8.0); NEUTROPHILS # 3.7 10^3/uL (1.5-8.5); NEUTROPHILS % 55.5 % (36.0-66.0); PLATELET COUNT, AUTOMATED 309 10^3/uL (150-450); RED BLOOD COUNT 4.42 10^6/uL (4.00-5.40); WHITE BLOOD COUNT 6.7 10^3/uL (4.0-10.0)
[2022-09-26 13:39] LABS: ALBUMIN 3.6 GM/DL (3.2-5.2); ALT/SGPT 26 U/L (12-78); BILIRUBIN,TOTAL 0.5 MG/DL (0.2-1.0); BLOOD UREA NITROGEN 14 MG/DL (7-18); CALCIUM LEVEL 8.9 MG/DL (8.8-10.2); CARBON DIOXIDE LEVEL 26 MEQ/L (21-32); CHLORIDE LEVEL 108 MEQ/L (98-107); CREATININE FOR GFR 0.77 MG/DL (0.55-1.30); GLOMERULAR FILTRATION RATE > 60.0 (>45); GLUCOSE, FASTING 139 MG/DL (70-100); POTASSIUM SERUM 3.7 MEQ/L (3.5-5.1); RHEUMATOID FACTOR QUANT < 10.0 IU/ML (<15.0); SODIUM LEVEL 140 MEQ/L (136-145); TOTAL PROTEIN 6.9 GM/DL (6.4-8.2); URIC ACID 4.4 MG/DL (2.6-6.0)
[2022-09-26 13:43] LABS: ERYTHROCYTE SEDIMENTATION RATE 15 mm/hr (0-30)
[2022-09-27 23:08] LABS: ANTINUCLEAR ANTIBODIES DIRECT Negative (Negative); CYCLIC CITRULLINATED PEPTIDE 11 units (0-19)
== END ==
LOC: M WUC 10:48
PROVIDERS: ATTEND Physician Assistant
DX: M06.9 Rheumatoid arthritis, unspecified (principal); M72.0 Palmar fascial fibromatosis [Dupuytren]; M65.331 Trigger finger, right middle finger

== ENCOUNTER → 2022-09-29 | Outpatient (REF) | payer OTHER | LOC: M SFHCPLAZ 13:20 | PROVIDERS: ATTEND Family Medicine | DX: L30.8 Other specified dermatitis (principal) ==

== ENCOUNTER → 2022-09-30 | Outpatient (CLI) | payer OTHER | LOC: M WUC 14:18 | PROVIDERS: ATTEND Family Medicine | DX: L40.4 Guttate psoriasis (principal) ==

== ENCOUNTER 2022-10-25 09:07 | Outpatient (RCR) | payer OTHER | END 2022-10-26 | LOC: M PT 09:07 | PROVIDERS: ATTEND Nurse Practitioner Family | DX: L40.4 Guttate psoriasis (principal) ==

== ENCOUNTER 2022-11-14 10:54 | Outpatient (RCR) | payer OTHER | END 2022-11-26 | LOC: M PT 10:54 | PROVIDERS: ATTEND Nurse Practitioner Family | DX: R21 Rash and other nonspecific skin eruption (principal) ==

== ENCOUNTER → 2022-12-05 | Outpatient (REF) | payer OTHER | LOC: M SFHCDERM 17:18 | PROVIDERS: ATTEND Physician Assistant | DX: L40.0 Psoriasis vulgaris (principal) ==

== ENCOUNTER 2022-12-14 17:13 | Inpatient (IN) | payer OTHER ==
[~2022-12-14] VITALS: Ht 160 cm; Wt 110.4 kg
[2022-12-14 18:03] LABS: BASO # 0.2 10^3/uL (0.0-0.2); BASO % 1.1 % (0.0-1.0); EOS % 0.3 % (0.0-3.0); HEMATOCRIT 38.3 % (36.0-47.0); HEMOGLOBIN 12.9 g/dl (12.0-15.5); LYMPH # 0.8 10^3/uL (1.5-5.0); LYMPH % 5.5 % (24.0-44.0); MEAN CORPUSCULAR HGB CONC 33.7 g/dl (32.0-36.5); MEAN CORPUSCULAR VOLUME 86.1 fl (80.0-96.0); MONO % 11.9 % (2.0-8.0); NEUTROPHILS # 12.3 10^3/uL (1.5-8.5); NEUTROPHILS % 80.2 % (36.0-66.0); PLATELET COUNT, AUTOMATED 204 10^3/uL (150-450); RED BLOOD COUNT 4.45 10^6/uL (4.00-5.40); WHITE BLOOD COUNT 15.3 10^3/uL (4.0-10.0)
[2022-12-14 18:31] LABS: CALCIUM LEVEL 8.6 MG/DL (8.3-10.6); CREATININE FOR GFR 1.81 MG/DL (0.55-1.30); GLOMERULAR FILTRATION RATE 30.3 (>45); POTASSIUM SERUM 3.8 MMOL/L (3.5-5.1)
[2022-12-14 18:40] LABS: MONO # 1.8 10^3/uL (0.0-0.8)
[2022-12-14] MEDS ORDERED: ONDANSETRON 4MG 2ML VIAL IV ONE (19:45)
[2022-12-14] MEDS ORDERED: NS 1,000 ML IV SCH (19:45)
[2022-12-14 20:57] LABS: MAGNESIUM LEVEL 1.6 MG/DL (1.8-2.4)
[2022-12-14 20:59] LABS: BILIRUBIN,DIRECT 0.4 MG/DL (<0.4); INR 1.24; PROTHROMBIN TIME 15.9 SECONDS (12.5-14.5)
[2022-12-14 21:01] LABS: THYROID STIMULATING HORMONE 0.203 uIU/ML (0.55-4.78)
[2022-12-14 21:03] LABS: ALKALINE PHOSPHATASE 63 U/L (46-116); ALT/SGPT 30 U/L (7.0-40); AST/SGOT 64 U/L (<34); BILIRUBIN,TOTAL 1.2 MG/DL (0.3-1.2); CK-MB VALUE MASS < 1.0 NG/ML (<3.6); CPK CREATINE PHOSPHOKINASE 378 U/L (34-145); FREE T4 2.16 NG/DL (0.89-1.76); LIPASE 21 U/L (12-53); MB/CK RELATIVE INDEX 0.26 (< OR =4); TOTAL PROTEIN 6.3 G/DL (5.7-8.2)
[2022-12-14 21:22] LABS: RSV AMPLIFICATION NEGATIVE (NEGATIVE)
[2022-12-14] MEDS ORDERED: NS 1,000 ML IV ONE ×3 (21:30→22:35)
[2022-12-14] MEDS ORDERED: ACETAMINOPHEN 500 MG TAB PO ONE (21:30)
[2022-12-14] MEDS ORDERED: FAMOTIDINE 20MG/2ML VIAL IVP ONE (21:55)
[2022-12-14] MEDS: metroNIDAZOLE 500 MG in IV 1 EA IV SCH (22:00)
[2022-12-14] MEDS ORDERED: MAG SULF 1GM/100ML (MAG RUN) 1 GM in IV 1 EA IV ONE (22:10)
[2022-12-14] MEDS ORDERED: APRE30TA3 PO (23:20)
[2022-12-14] MEDS ORDERED: FURO40TA2 PO (23:20)
[2022-12-14] MEDS ORDERED: ATOR1TAB21 PO (23:20)
[2022-12-14] MEDS ORDERED: LOSA100T45 PO (23:20)
[2022-12-14] MEDS ORDERED: ONDA-195 PO (23:20)
[2022-12-14] MEDS ORDERED: HYDR200T3 PO (23:20)
[2022-12-14] MEDS ORDERED: LEVOTAB10 PO (23:20)
[2022-12-14] MEDS ORDERED: VITA100093 PO (23:20)
[2022-12-14] MEDS ORDERED: METO1TAB32 PO (23:20)
[2022-12-14] MEDS ORDERED: CVS1CHW13 PO (23:20)
[2022-12-14] MEDS ORDERED: AMIO200T49 PO (23:20)
[2022-12-14] MEDS ORDERED: OYST500T92 PO (23:20)
[2022-12-14] MEDS ORDERED: FAMO20TA4 PO (23:20)
[2022-12-14] MEDS ORDERED: HYDR-3363 PO (23:20)
[2022-12-14] MEDS ORDERED: DILT1CAP46 PO (23:20)
[2022-12-14] MEDS ORDERED: VENL75CA47 PO (23:20)
[2022-12-14] MEDS ORDERED: LEFL1TAB4 PO (23:21)
[2022-12-14] MEDS ORDERED: HOME MED LIST COMPLETE! XX SCH (23:25)
[2022-12-14] MEDS ORDERED: traZODone 50 MG TAB PO PRN (23:30)
[2022-12-14] MEDS: CIPROFLOXACIN 400 MG in IV 1 EA IV SCH (23:46)
[2022-12-15] MEDS: NS 1,000 ML IV SCH ×3 (00:18→18:46)
[2022-12-15] MEDS: ONDANSETRON 4MG 2ML VIAL IV PRN ×2 (02:16→12:50)
[2022-12-15] MEDS: ACETAMINOPHEN TAB 650MG DOSE (2X325MG) PO PRN ×2 (03:47→18:13)
[2022-12-15] MEDS ORDERED: PROMETHAZINE 25MG/ML 1ML VIAL IV ONE (04:05)
[2022-12-15] MEDS: metroNIDAZOLE 500 MG in IV 1 EA IV SCH (06:00)
[2022-12-15 06:50] LABS: HEMATOCRIT 32.2 % (36.0-47.0); MEAN CORPUSCULAR HGB CONC 33.5 g/dl (32.0-36.5); MEAN CORPUSCULAR VOLUME 89.4 fl (80.0-96.0); PLATELET COUNT, AUTOMATED 159 10^3/uL (150-450); WHITE BLOOD COUNT 12.7 10^3/uL (4.0-10.0)
[2022-12-15 06:59] LABS: HEMOGLOBIN 10.8 g/dl (12.0-15.5)
[2022-12-15 07:00] LABS: INR 1.34; PROTHROMBIN TIME 16.8 SECONDS (12.5-14.5)
[2022-12-15 07:01] LABS: PARTIAL THROMBOPLASTIN TIME 27.7 SECONDS (24.8-34.2)
[2022-12-15 07:14] LABS: MAGNESIUM LEVEL 1.7 MG/DL (1.8-2.4)
[2022-12-15 07:18] LABS: ALBUMIN 2.3 G/DL (3.2-5.2); BILIRUBIN,TOTAL 0.9 MG/DL (0.3-1.2); CALCIUM LEVEL 7.2 MG/DL (8.3-10.6); CREATININE FOR GFR 1.41 MG/DL (0.55-1.30); GLOMERULAR FILTRATION RATE 40.4 (>45); POTASSIUM SERUM 3.8 MMOL/L (3.5-5.1); TOTAL PROTEIN 5.2 G/DL (5.7-8.2)
[2022-12-15] MEDS: AMIODARONE 200 MG TAB (PACERONE) PO SCH (08:09)
[2022-12-15] MEDS: MAG SULF 1GM/100ML (MAG RUN) 1 GM in IV 1 EA IV SCH ×2 (08:12→09:17)
[2022-12-15] MEDS: VENLAFAXINE **XR** 75MG CAPSULE PO SCH ×2 (08:37→08:39)
[2022-12-15] MEDS: APIXABAN 5 MG TAB (ELIQUIS) PO SCH ×2 (08:40→20:40)
[2022-12-15] MEDS ORDERED: HYDROXYCHLOROQUINE 200 MG TAB PO SCH (09:00)
[2022-12-15] MEDS ORDERED: LOSARTAN 50MG TABLET PO SCH (09:00)
[2022-12-15] MEDS ORDERED: FAMOTIDINE 20 MG TAB PO SCH (09:00)
[2022-12-15] MEDS: CIPROFLOXACIN 400 MG in IV 1 EA IV SCH (11:05)
[2022-12-15] MEDS ORDERED: VANCOMYCIN HCL 1,000 MG, VIAL MATE ADAPTER 1 EACH in NS 250 ML IV ONE ×2 (12:00→13:00)
[2022-12-15] MEDS: PANTOPRAZOLE 40MG VIAL IV SCH (12:57)
[2022-12-15] MEDS: SUCRALFATE SUSP 1GM/10ML UD PO SCH ×4 (13:00→20:48)
[2022-12-15] MEDS: PIPERACILLIN/TAZOBACTAM SOD 4.5 GM in D5W MINI-BAG PLUS 50 ML IV SCH ×2 (16:22→20:41)
[2022-12-15 19:58] VITALS: BP 121/68
[2022-12-15] MEDS: ATORVASTATIN 20 MG TAB PO SCH (20:40)
[2022-12-15] MEDS ORDERED: VANCOMYCIN HCL 750 MG, VIAL MATE ADAPTER 1 EACH in D5W 250 ML IV SCH (21:00)
[2022-12-15] MEDS ORDERED: METOPROLOL SUCC *XL* 25MG TAB (TopROL *XL*) PO SCH (21:00)
[2022-12-16] MEDS: PIPERACILLIN/TAZOBACTAM SOD 4.5 GM in D5W MINI-BAG PLUS 50 ML IV SCH ×2 (04:07→08:14)
[2022-12-16 04:10] VITALS: BP 130/70
[2022-12-16 04:52] LABS: HEMATOCRIT 30.8 % (36.0-47.0); HEMOGLOBIN 10.1 g/dl (12.0-15.5); MEAN CORPUSCULAR HGB CONC 32.8 g/dl (32.0-36.5); MEAN CORPUSCULAR VOLUME 88.5 fl (80.0-96.0); PLATELET COUNT, AUTOMATED 145 10^3/uL (150-450); RED BLOOD COUNT 3.48 10^6/uL (4.00-5.40); WHITE BLOOD COUNT 9.7 10^3/uL (4.0-10.0)
[2022-12-16 05:22] LABS: BLOOD UREA NITROGEN 18 MG/DL (9-23); CALCIUM LEVEL 7.5 MG/DL (8.3-10.6); CARBON DIOXIDE LEVEL 22 MMOL/L (20-31); CHLORIDE LEVEL 105 MMOL/L (98-107); CREATININE FOR GFR 0.81 MG/DL (0.55-1.30); GLOMERULAR FILTRATION RATE > 60.0 (>45); GLUCOSE, FASTING 105 MG/DL (74-106); POTASSIUM SERUM 3.5 MMOL/L (3.5-5.1); SODIUM LEVEL 136 MMOL/L (136-145)
[2022-12-16 05:33] LABS: ATYPICAL LYMPH 2 % (0-5); EOSINOPHILS 4 % (0-3); LYMPHOCYTES 12 % (16-44); MONOCYTES 6 % (0-5); NEUTROPHILS 67 % (28-66)
[2022-12-16 05:34] LABS: PLATELET ESTIMATE NORMAL (NORMAL)
[2022-12-16 05:42] VITALS: BP 131/76
[2022-12-16 07:39] VITALS: BP 129/66
[2022-12-16] MEDS: SUCRALFATE SUSP 1GM/10ML UD PO SCH ×5 (08:07→21:39)
[2022-12-16] MEDS: APIXABAN 5 MG TAB (ELIQUIS) PO SCH ×2 (08:08→21:39)
[2022-12-16] MEDS: AMIODARONE 200 MG TAB (PACERONE) PO SCH (08:08)
[2022-12-16] MEDS: VENLAFAXINE **XR** 75MG CAPSULE PO SCH ×2 (08:08→08:11)
[2022-12-16] MEDS: ACETAMINOPHEN TAB 650MG DOSE (2X325MG) PO PRN (08:08)
[2022-12-16] MEDS: APREMILAST 30 MG PO SCH ×2 (09:00→21:00)
[2022-12-16] MEDS ORDERED: FLUBLOK(EGG FREE)(QUAD)INFLUENZA VACC 0.5ML SYRINGE 18YRS & OLDER IM.IMMUN ONE (09:00)
[2022-12-16] MEDS: VANCOMYCIN HCL 1,000 MG, VIAL MATE ADAPTER 1 EACH in D5W 250 ML IV SCH ×2 (09:14→21:40)
[2022-12-16] MEDS: NS 1,000 ML IV SCH ×2 (09:14→15:32)
[2022-12-16 12:00] VITALS: BP 111/75
[2022-12-16] MEDS: PANTOPRAZOLE 40MG VIAL IV SCH (12:26)
[2022-12-16] MEDS ORDERED: ISOVUE-370 76% 100ML VIAL As Ordered ONE (14:47)
[2022-12-16 16:00] VITALS: BP 122/76
[2022-12-16 20:14] VITALS: BP 147/77
[2022-12-16] MEDS: ATORVASTATIN 20 MG TAB PO SCH (21:39)
[2022-12-16] MEDS: METOPROLOL SUCC (TopROL XL) 50MG **XL** TAB PO SCH (21:39)
[2022-12-17 00:28] VITALS: BP 132/64
[2022-12-17 04:41] VITALS: BP 128/72
[2022-12-17] MEDS: NS 1,000 ML IV SCH (06:18)
[2022-12-17] MEDS: SUCRALFATE SUSP 1GM/10ML UD PO SCH (07:30)
[2022-12-17 07:40] VITALS: BP 137/66
[2022-12-17] MEDS: APIXABAN 5 MG TAB (ELIQUIS) PO SCH ×2 (08:07→21:03)
[2022-12-17] MEDS: ceFAZolin SOD 2 GM in IV 1 EA IV SCH ×2 (08:07→16:38)
[2022-12-17] MEDS: VENLAFAXINE **XR** 75MG CAPSULE PO SCH ×2 (08:08→08:11)
[2022-12-17] MEDS: AMIODARONE 200 MG TAB (PACERONE) PO SCH (08:09)
[2022-12-17 08:36] LABS: BASO % 0.4 % (0.0-1.0); EOS # 0.2 10^3/uL (0.0-0.5); EOS % 2.3 % (0.0-3.0); HEMATOCRIT 31.4 % (36.0-47.0); HEMOGLOBIN 10.3 g/dl (12.0-15.5); LYMPH # 1.3 10^3/uL (1.5-5.0); LYMPH % 16.5 % (24.0-44.0); MEAN CORPUSCULAR HEMOGLOBIN 28.8 pg (27.0-33.0); MEAN CORPUSCULAR HGB CONC 32.8 g/dl (32.0-36.5); MEAN CORPUSCULAR VOLUME 87.7 fl (80.0-96.0); MONO # 1.1 10^3/uL (0.0-0.8); MONO % 13.3 % (2.0-8.0); NEUTROPHILS # 5.4 10^3/uL (1.5-8.5); NEUTROPHILS % 66.7 % (36.0-66.0); PLATELET COUNT, AUTOMATED 190 10^3/uL (150-450); RED BLOOD COUNT 3.58 10^6/uL (4.00-5.40)
[2022-12-17 08:49] LABS: VANCOMYCIN LEVEL TROUGH 9.4 UG/ML (10.0-20.0)
[2022-12-17 08:50] LABS: BLOOD UREA NITROGEN 14 MG/DL (9-23); CALCIUM LEVEL 7.8 MG/DL (8.3-10.6); CARBON DIOXIDE LEVEL 23 MMOL/L (20-31); CHLORIDE LEVEL 107 MMOL/L (98-107); CREATININE FOR GFR 0.67 MG/DL (0.55-1.30); GLOMERULAR FILTRATION RATE > 60.0 (>45); GLUCOSE, FASTING 132 MG/DL (74-106); POTASSIUM SERUM 3.1 MMOL/L (3.5-5.1); SODIUM LEVEL 139 MMOL/L (136-145)
[2022-12-17] MEDS: BETAMETHASONE DIP 0.05% OINT 15GM TOP SCH ×2 (09:00→21:05)
[2022-12-17] MEDS: APREMILAST 30 MG PO SCH ×2 (09:00→21:00)
[2022-12-17] MEDS: PANTOPRAZOLE 40MG TAB (PROTONIX) PO SCH (09:41)
[2022-12-17 12:00] VITALS: BP 143/70
[2022-12-17] MEDS ORDERED: POTASSIUM CHLORIDE 10MEQ SR TABLET PO ONE (12:00)
[2022-12-17 16:31] VITALS: BP 131/64
[2022-12-17 20:31] VITALS: BP 140/64
[2022-12-17] MEDS: ATORVASTATIN 20 MG TAB PO SCH (21:04)
[2022-12-17] MEDS: METOPROLOL SUCC (TopROL XL) 50MG **XL** TAB PO SCH (21:04)
[2022-12-18 00:22] VITALS: BP 154/73
[2022-12-18] MEDS: ceFAZolin SOD 2 GM in IV 1 EA IV SCH ×4 (00:32→23:42)
[2022-12-18 04:12] LABS: BASO % 0.4 % (0.0-1.0); EOS # 0.2 10^3/uL (0.0-0.5); EOS % 2.1 % (0.0-3.0); HEMATOCRIT 29.8 % (36.0-47.0); HEMOGLOBIN 9.8 g/dl (12.0-15.5); LYMPH # 1.6 10^3/uL (1.5-5.0); LYMPH % 19.4 % (24.0-44.0); MEAN CORPUSCULAR HEMOGLOBIN 28.9 pg (27.0-33.0); MEAN CORPUSCULAR HGB CONC 32.9 g/dl (32.0-36.5); MEAN CORPUSCULAR VOLUME 87.9 fl (80.0-96.0); MONO # 1.5 10^3/uL (0.0-0.8); MONO % 17.8 % (2.0-8.0); NEUTROPHILS % 59.5 % (36.0-66.0); PLATELET COUNT, AUTOMATED 231 10^3/uL (150-450); RED BLOOD COUNT 3.39 10^6/uL (4.00-5.40); WHITE BLOOD COUNT 8.5 10^3/uL (4.0-10.0)
[2022-12-18 04:33] LABS: BLOOD UREA NITROGEN 11 MG/DL (9-23); CALCIUM LEVEL 7.4 MG/DL (8.3-10.6); CARBON DIOXIDE LEVEL 25 MMOL/L (20-31); CHLORIDE LEVEL 109 MMOL/L (98-107); CREATININE FOR GFR 0.64 MG/DL (0.55-1.30); GLOMERULAR FILTRATION RATE > 60.0 (>45); GLUCOSE, FASTING 102 MG/DL (74-106); POTASSIUM SERUM 3.3 MMOL/L (3.5-5.1); SODIUM LEVEL 140 MMOL/L (136-145)
[2022-12-18 04:46] VITALS: BP 137/63
[2022-12-18 07:39] VITALS: BP 103/56
[2022-12-18] MEDS: APIXABAN 5 MG TAB (ELIQUIS) PO SCH ×2 (08:43→22:16)
[2022-12-18] MEDS: AMIODARONE 200 MG TAB (PACERONE) PO SCH (08:43)
[2022-12-18] MEDS: PANTOPRAZOLE 40MG TAB (PROTONIX) PO SCH (08:43)
[2022-12-18] MEDS: BETAMETHASONE DIP 0.05% OINT 15GM TOP SCH ×2 (08:44→20:23)
[2022-12-18] MEDS: VENLAFAXINE **XR** 75MG CAPSULE PO SCH (08:44)
[2022-12-18] MEDS ORDERED: POTASSIUM CHLORIDE 10MEQ SR TABLET PO ONE (09:00)
[2022-12-18] MEDS: APREMILAST 30 MG PO SCH ×2 (09:00→21:00)
[2022-12-18 13:15] VITALS: BP 160/74
[2022-12-18 16:13] VITALS: BP 147/67
[2022-12-18 20:19] VITALS: BP 161/78
[2022-12-18] MEDS: ATORVASTATIN 20 MG TAB PO SCH (20:22)
[2022-12-18] MEDS: METOPROLOL SUCC (TopROL XL) 50MG **XL** TAB PO SCH (20:22)
[2022-12-19 04:00] VITALS: BP 157/68
[2022-12-19 05:30] LABS: BASO % 0.4 % (0.0-1.0); EOS # 0.2 10^3/uL (0.0-0.5); EOS % 1.8 % (0.0-3.0); HEMATOCRIT 30.4 % (36.0-47.0); HEMOGLOBIN 9.7 g/dl (12.0-15.5); LYMPH # 1.6 10^3/uL (1.5-5.0); MEAN CORPUSCULAR HEMOGLOBIN 28.4 pg (27.0-33.0); MEAN CORPUSCULAR HGB CONC 31.9 g/dl (32.0-36.5); MEAN CORPUSCULAR VOLUME 89.1 fl (80.0-96.0); MONO # 1.4 10^3/uL (0.0-0.8); MONO % 15.9 % (2.0-8.0); NEUTROPHILS # 5.6 10^3/uL (1.5-8.5); NEUTROPHILS % 61.9 % (36.0-66.0); PLATELET COUNT, AUTOMATED 297 10^3/uL (150-450); RED BLOOD COUNT 3.41 10^6/uL (4.00-5.40)
[2022-12-19 05:52] LABS: BLOOD UREA NITROGEN 10 MG/DL (9-23); CALCIUM LEVEL 7.5 MG/DL (8.3-10.6); CARBON DIOXIDE LEVEL 25 MMOL/L (20-31); CHLORIDE LEVEL 110 MMOL/L (98-107); GLOMERULAR FILTRATION RATE > 60.0 (>45); GLUCOSE, FASTING 103 MG/DL (74-106); POTASSIUM SERUM 3.6 MMOL/L (3.5-5.1); SODIUM LEVEL 142 MMOL/L (136-145)
[2022-12-19 07:46] VITALS: BP 159/79
[2022-12-19] MEDS: APIXABAN 5 MG TAB (ELIQUIS) PO SCH ×2 (08:05→20:10)
[2022-12-19] MEDS: PANTOPRAZOLE 40MG TAB (PROTONIX) PO SCH (08:05)
[2022-12-19] MEDS: VENLAFAXINE **XR** 75MG CAPSULE PO SCH (08:05)
[2022-12-19] MEDS: ceFAZolin SOD 2 GM in IV 1 EA IV SCH ×3 (08:05→23:30)
[2022-12-19] MEDS: AMIODARONE 200 MG TAB (PACERONE) PO SCH (08:06)
[2022-12-19] MEDS: BETAMETHASONE DIP 0.05% OINT 15GM TOP SCH ×2 (08:07→20:11)
[2022-12-19] MEDS: APREMILAST 30 MG PO SCH ×3 (09:00→21:00)
[2022-12-19 15:46] VITALS: BP 135/76
[2022-12-19] MEDS ORDERED: fentaNYL 100 MCG/2 ML INJECTION As Ordered ONE (17:21)
[2022-12-19] MEDS ORDERED: propofoL 200 MG/20 ML VIAL As Ordered ONE ×3 (17:22→18:15)
[2022-12-19] MEDS ORDERED: MIDAZOLAM INJ 2MG/2ML VIAL As Ordered ONE (17:22)
[2022-12-19] MEDS ORDERED: LIDOCAINE 2% 100MG/5ML SDV (FOR ANES.) As Ordered ONE ×2 (17:22→18:03)
[2022-12-19] MEDS ORDERED: LIDOCAINE VISCOUS 2% SOLN 15ML UDC As Ordered ONE (17:39)
[2022-12-19] MEDS ORDERED: CETACAINE SPRAY 5GM As Ordered ONE (17:39)
[2022-12-19 19:32] VITALS: BP 180/86
[2022-12-19] MEDS: METOPROLOL SUCC (TopROL XL) 50MG **XL** TAB PO SCH (20:10)
[2022-12-19] MEDS: ATORVASTATIN 20 MG TAB PO SCH (20:10)
[2022-12-19] MEDS ORDERED: PILL CUTTER 1 EACH XX PRN (23:00)
[2022-12-19] MEDS ORDERED: MORPHINE 2 MG/ML 1ML VIAL IV PRN (23:00)
[2022-12-20] MEDS ORDERED: FAMOTIDINE 20 MG TAB PO ONE
[2022-12-20 04:00] VITALS: BP 142/64
[2022-12-20 04:26] LABS: BASO # 0.1 10^3/uL (0.0-0.2); BASO % 0.5 % (0.0-1.0); EOS # 0.2 10^3/uL (0.0-0.5); EOS % 2.4 % (0.0-3.0); HEMOGLOBIN 9.7 g/dl (12.0-15.5); LYMPH # 1.7 10^3/uL (1.5-5.0); LYMPH % 18.4 % (24.0-44.0); MEAN CORPUSCULAR HGB CONC 32.3 g/dl (32.0-36.5); MEAN CORPUSCULAR VOLUME 89.8 fl (80.0-96.0); MONO # 1.4 10^3/uL (0.0-0.8); MONO % 14.7 % (2.0-8.0); NEUTROPHILS # 5.7 10^3/uL (1.5-8.5); NEUTROPHILS % 61.1 % (36.0-66.0); PLATELET COUNT, AUTOMATED 341 10^3/uL (150-450); RED BLOOD COUNT 3.34 10^6/uL (4.00-5.40); WHITE BLOOD COUNT 9.3 10^3/uL (4.0-10.0)
[2022-12-20 04:50] LABS: BLOOD UREA NITROGEN 11 MG/DL (9-23); CALCIUM LEVEL 7.8 MG/DL (8.3-10.6); CARBON DIOXIDE LEVEL 25 MMOL/L (20-31); CHLORIDE LEVEL 109 MMOL/L (98-107); CREATININE FOR GFR 0.59 MG/DL (0.55-1.30); GLOMERULAR FILTRATION RATE > 60.0 (>45); GLUCOSE, FASTING 94 MG/DL (74-106); POTASSIUM SERUM 3.8 MMOL/L (3.5-5.1); SODIUM LEVEL 142 MMOL/L (136-145)
[2022-12-20 05:34] VITALS: BP 177/86
[2022-12-20 07:35] VITALS: BP 165/74
[2022-12-20] MEDS ORDERED: FAMOTIDINE 20 MG TAB PO SCH (09:00)
[2022-12-20] MEDS: PANTOPRAZOLE 40MG TAB (PROTONIX) PO SCH (09:27)
[2022-12-20] MEDS: SPIRONOLACTONE 50 MG TAB PO SCH (09:27)
[2022-12-20] MEDS: APIXABAN 5 MG TAB (ELIQUIS) PO SCH ×2 (09:28→21:30)
[2022-12-20] MEDS: ceFAZolin SOD 2 GM in IV 1 EA IV SCH ×2 (09:28→17:28)
[2022-12-20] MEDS: FUROSEMIDE 40 MG TAB PO SCH (09:28)
[2022-12-20] MEDS: VENLAFAXINE **XR** 75MG CAPSULE PO SCH (09:28)
[2022-12-20] MEDS: AMIODARONE 200 MG TAB (PACERONE) PO SCH (09:34)
[2022-12-20] MEDS: BETAMETHASONE DIP 0.05% OINT 15GM TOP SCH ×2 (09:37→21:32)
[2022-12-20] MEDS: APREMILAST 30 MG PO SCH ×2 (09:37→21:30)
[2022-12-20 16:00] VITALS: BP 135/62
[2022-12-20 20:00] VITALS: BP 166/76
[2022-12-20] MEDS: ATORVASTATIN 20 MG TAB PO SCH (21:30)
[2022-12-20] MEDS: METOPROLOL SUCC (TopROL XL) 50MG **XL** TAB PO SCH (21:32)
[2022-12-20] MEDS: FAMOTIDINE 20 MG TAB PO SCH (22:09)
[2022-12-21] MEDS: ceFAZolin SOD 2 GM in IV 1 EA IV SCH ×3 (00:08→16:02)
[2022-12-21 04:00] VITALS: BP 161/69
[2022-12-21 04:15] LABS: HEMATOCRIT 31.6 % (36.0-47.0); HEMOGLOBIN 10.4 g/dl (12.0-15.5); MEAN CORPUSCULAR HEMOGLOBIN 29.3 pg (27.0-33.0); MEAN CORPUSCULAR HGB CONC 32.9 g/dl (32.0-36.5); PLATELET COUNT, AUTOMATED 385 10^3/uL (150-450); RED BLOOD COUNT 3.55 10^6/uL (4.00-5.40); WHITE BLOOD COUNT 9.2 10^3/uL (4.0-10.0)
[2022-12-21 04:41] LABS: ALBUMIN 2.5 G/DL (3.2-5.2); ALKALINE PHOSPHATASE 80 U/L (46-116); ALT/SGPT 19 U/L (7.0-40); AST/SGOT 20 U/L (<34); BILIRUBIN,TOTAL 0.4 MG/DL (0.3-1.2); BLOOD UREA NITROGEN 8 MG/DL (9-23); CALCIUM LEVEL 8.4 MG/DL (8.3-10.6); CARBON DIOXIDE LEVEL 26 MMOL/L (20-31); CHLORIDE LEVEL 109 MMOL/L (98-107); CREATININE FOR GFR 0.61 MG/DL (0.55-1.30); GLOMERULAR FILTRATION RATE > 60.0 (>45); GLUCOSE, FASTING 92 MG/DL (74-106); SODIUM LEVEL 142 MMOL/L (136-145); TOTAL PROTEIN 5.2 G/DL (5.7-8.2)
[2022-12-21 07:25] VITALS: BP 135/60
[2022-12-21] MEDS ORDERED: LIDOCAINE 1% MDV 20ML VIAL As Ordered ONE (08:01)
[2022-12-21] MEDS: VENLAFAXINE **XR** 75MG CAPSULE PO SCH (09:09)
[2022-12-21] MEDS: APIXABAN 5 MG TAB (ELIQUIS) PO SCH ×2 (09:10→20:55)
[2022-12-21] MEDS: ACETAMINOPHEN TAB 650MG DOSE (2X325MG) PO PRN ×2 (09:10→17:16)
[2022-12-21] MEDS: PANTOPRAZOLE 40MG TAB (PROTONIX) PO SCH (09:10)
[2022-12-21] MEDS: FAMOTIDINE 20 MG TAB PO SCH ×2 (09:10→20:56)
[2022-12-21] MEDS: FUROSEMIDE 40 MG TAB PO SCH (09:10)
[2022-12-21] MEDS: AMIODARONE 200 MG TAB (PACERONE) PO SCH (09:11)
[2022-12-21] MEDS: SPIRONOLACTONE 50 MG TAB PO SCH (09:11)
[2022-12-21] MEDS: APREMILAST 30 MG PO SCH ×2 (09:12→20:59)
[2022-12-21] MEDS: BETAMETHASONE DIP 0.05% OINT 15GM TOP SCH ×2 (09:16→21:00)
[2022-12-21 09:17] VITALS: BP 157/72
[2022-12-21] MEDS ORDERED: SODIUM CHLORIDE 0.9% INJ 10 ML SYR IV PRN (10:05)
[2022-12-21 11:42] VITALS: BP 142/70
[2022-12-21] MEDS: SODIUM CHLORIDE 0.9% INJ 10 ML SYR IV SCH (17:17)
[2022-12-21 20:26] VITALS: BP 172/76
[2022-12-21] MEDS: ATORVASTATIN 20 MG TAB PO SCH (20:55)
[2022-12-21] MEDS: METOPROLOL SUCC (TopROL XL) 50MG **XL** TAB PO SCH (20:56)
[2022-12-22] MEDS: ceFAZolin SOD 2 GM in IV 1 EA IV SCH ×3 (00:43→15:10)
[2022-12-22] MEDS: ACETAMINOPHEN TAB 650MG DOSE (2X325MG) PO PRN (00:45)
[2022-12-22 03:46] VITALS: BP 136/65
[2022-12-22 04:13] LABS: HEMATOCRIT 31.2 % (36.0-47.0); HEMOGLOBIN 10.1 g/dl (12.0-15.5); MEAN CORPUSCULAR HGB CONC 32.4 g/dl (32.0-36.5); MEAN CORPUSCULAR VOLUME 89.7 fl (80.0-96.0); PLATELET COUNT, AUTOMATED 356 10^3/uL (150-450); RED BLOOD COUNT 3.48 10^6/uL (4.00-5.40)
[2022-12-22 04:41] LABS: ALBUMIN 2.3 G/DL (3.2-5.2); ALKALINE PHOSPHATASE 73 U/L (46-116); ALT/SGPT 15 U/L (7.0-40); AST/SGOT 18 U/L (<34); BILIRUBIN,TOTAL 0.4 MG/DL (0.3-1.2); BLOOD UREA NITROGEN 9 MG/DL (9-23); CALCIUM LEVEL 8.3 MG/DL (8.3-10.6); CARBON DIOXIDE LEVEL 25 MMOL/L (20-31); CHLORIDE LEVEL 108 MMOL/L (98-107); CREATININE FOR GFR 0.61 MG/DL (0.55-1.30); GLOMERULAR FILTRATION RATE > 60.0 (>45); GLUCOSE, FASTING 89 MG/DL (74-106); POTASSIUM SERUM 4.1 MMOL/L (3.5-5.1); SODIUM LEVEL 140 MMOL/L (136-145); TOTAL PROTEIN 5.3 G/DL (5.7-8.2)
[2022-12-22] MEDS: SODIUM CHLORIDE 0.9% INJ 10 ML SYR IV SCH (05:52)
[2022-12-22] MEDS ORDERED: CEFA2SOL IV (06:50)
[2022-12-22 07:39] VITALS: BP 153/72
[2022-12-22] MEDS: APREMILAST 30 MG PO SCH (08:45)
[2022-12-22] MEDS: PANTOPRAZOLE 40MG TAB (PROTONIX) PO SCH (08:45)
[2022-12-22] MEDS: AMIODARONE 200 MG TAB (PACERONE) PO SCH (08:45)
[2022-12-22] MEDS: SPIRONOLACTONE 50 MG TAB PO SCH (08:45)
[2022-12-22] MEDS: FAMOTIDINE 20 MG TAB PO SCH (08:46)
[2022-12-22] MEDS: FUROSEMIDE 40 MG TAB PO SCH (08:46)
[2022-12-22] MEDS: VENLAFAXINE **XR** 75MG CAPSULE PO SCH (08:46)
[2022-12-22] MEDS: APIXABAN 5 MG TAB (ELIQUIS) PO SCH (08:46)
[2022-12-22] MEDS: BETAMETHASONE DIP 0.05% OINT 15GM TOP SCH (08:54)
[2022-12-22 14:03] VITALS: BP 134/67
[2022-12-22 16:00] VITALS: BP 164/81
== END 2022-12-22 16:44 | disposition home health service (06) | DRG 206 ==
LOC: M ED 17:13 → M ED INP 21:51 → ENRESERV 12-15 18:41 → M PCU 12-15 19:51
PROVIDERS: ADMIT Family Medicine; ATTEND Internal Medicine
PROC: B246ZZZ Ultrasonography of Right and Left Heart (ICD-10-PCS; principal; 2022-12-16)
PROC: B246ZZ4 Ultrasonography of Right and Left Heart, Transesophageal (ICD-10-PCS; 2022-12-19)
PROC: 02HV33Z Insertion of Infusion Device into Superior Vena Cava, Percutaneous Approach (ICD-10-PCS; 2022-12-21)
DX: T82.7XXA Infection and inflammatory reaction due to other cardiac and vascular devices, implants and grafts, initial encounter (principal); A41.01 Sepsis due to Methicillin susceptible Staphylococcus aureus; N17.9 Acute kidney failure, unspecified; E87.20 Acidosis, unspecified; E87.1 Hypo-osmolality and hyponatremia; I48.92 Unspecified atrial flutter; E83.42 Hypomagnesemia; I48.91 Unspecified atrial fibrillation; I10 Essential (primary) hypertension; R94.6 Abnormal results of thyroid function studies; E78.5 Hyperlipidemia, unspecified; R11.2 Nausea with vomiting, unspecified; G47.33 Obstructive sleep apnea (adult) (pediatric); M06.9 Rheumatoid arthritis, unspecified; E87.6 Hypokalemia; K21.9 Gastro-esophageal reflux disease without esophagitis; F41.9 Anxiety disorder, unspecified; F32.A Depression, unspecified; Y83.1 Surgical operation with implant of artificial internal device as the cause of abnormal reaction of the patient, or of later complication, without mention of misadventure at the time of the procedure; Z88.2 Allergy status to sulfonamides; Z88.8 Allergy status to other drugs, medicaments and biological substances; K58.0 Irritable bowel syndrome with diarrhea; L40.0 Psoriasis vulgaris; Z95.0 Presence of cardiac pacemaker; Z90.49 Acquired absence of other specified parts of digestive tract; Z86.010 Personal history of colon polyps; Z79.01 Long term (current) use of anticoagulants; Z79.899 Other long term (current) drug therapy

== ENCOUNTER → 2022-12-26 | Outpatient (REF) | payer OTHER ==
[~2022-12-26] MED LIST changes: +AMIO200T49 PO; +APRE30TA3 PO; +ATOR1TAB21 PO; +CEFA2SOL IV; +CVS1CHW13 PO; +DILT1CAP46 PO; +FAMO20TA4 PO; +FURO40TA2 PO; +HYDR200T3 PO; +LEFL1TAB4 PO; +LEVOTAB10 PO; +LOSA100T45 PO; +METO1TAB32 PO; +ONDA-195 PO; +OYST500T92 PO; +VENL75CA47 PO; +VITA100093 PO
[2022-12-26 17:19] LABS: HEMATOCRIT 36.4 % (36.0-47.0); HEMOGLOBIN 11.5 g/dl (12.0-15.5); MEAN CORPUSCULAR HEMOGLOBIN 28.8 pg (27.0-33.0); MEAN CORPUSCULAR HGB CONC 31.6 g/dl (32.0-36.5); PLATELET COUNT, AUTOMATED 362 10^3/uL (150-450); WHITE BLOOD COUNT 7.8 10^3/uL (4.0-10.0)
[2022-12-26 17:42] LABS: ERYTHROCYTE SEDIMENTATION RATE 75 mm/hr (0-30)
== END ==
LOC: M SHH 15:19
PROVIDERS: ATTEND Internal Medicine
DX: I38 Endocarditis, valve unspecified (principal); Z95.0 Presence of cardiac pacemaker

== ENCOUNTER → 2023-01-02 | Outpatient (REF) | payer OTHER ==
[2023-01-02 14:09] LABS: HEMATOCRIT 33.7 % (36.0-47.0); HEMOGLOBIN 10.7 g/dl (12.0-15.5); MEAN CORPUSCULAR HEMOGLOBIN 28.8 pg (27.0-33.0); MEAN CORPUSCULAR HGB CONC 31.8 g/dl (32.0-36.5); MEAN CORPUSCULAR VOLUME 90.6 fl (80.0-96.0); PLATELET COUNT, AUTOMATED 286 10^3/uL (150-450); RED BLOOD COUNT 3.72 10^6/uL (4.00-5.40); WHITE BLOOD COUNT 5.6 10^3/uL (4.0-10.0)
[2023-01-02 14:27] LABS: ERYTHROCYTE SEDIMENTATION RATE 64 mm/hr (0-30)
== END ==
LOC: M SHH 13:25
PROVIDERS: ATTEND Internal Medicine
DX: I33.0 Acute and subacute infective endocarditis (principal); T82.7XXA Infection and inflammatory reaction due to other cardiac and vascular devices, implants and grafts, initial encounter

== ENCOUNTER → 2023-01-09 | Outpatient (REF) | payer OTHER ==
[2023-01-09 12:45] LABS: HEMATOCRIT 35.1 % (36.0-47.0); HEMOGLOBIN 11.2 g/dl (12.0-15.5); MEAN CORPUSCULAR HGB CONC 31.9 g/dl (32.0-36.5); MEAN CORPUSCULAR VOLUME 90.9 fl (80.0-96.0); PLATELET COUNT, AUTOMATED 312 10^3/uL (150-450); RED BLOOD COUNT 3.86 10^6/uL (4.00-5.40); WHITE BLOOD COUNT 5.1 10^3/uL (4.0-10.0)
[2023-01-09 13:19] LABS: ERYTHROCYTE SEDIMENTATION RATE 65 mm/hr (0-30)
== END ==
LOC: M SHH 12:16
PROVIDERS: ATTEND Internal Medicine
DX: I38 Endocarditis, valve unspecified (principal)

== ENCOUNTER → 2023-01-16 | Outpatient (REF) | payer OTHER ==
[2023-01-16 12:53] LABS: HEMATOCRIT 35.5 % (36.0-47.0); HEMOGLOBIN 11.4 g/dl (12.0-15.5); MEAN CORPUSCULAR HEMOGLOBIN 29.5 pg (27.0-33.0); MEAN CORPUSCULAR HGB CONC 32.1 g/dl (32.0-36.5); MEAN CORPUSCULAR VOLUME 91.7 fl (80.0-96.0); PLATELET COUNT, AUTOMATED 324 10^3/uL (150-450); RED BLOOD COUNT 3.87 10^6/uL (4.00-5.40); WHITE BLOOD COUNT 7.1 10^3/uL (4.0-10.0)
[2023-01-16 13:22] LABS: ERYTHROCYTE SEDIMENTATION RATE 35 mm/hr (0-30)
== END ==
LOC: M SHH 12:18
PROVIDERS: ATTEND Internal Medicine
DX: I38 Endocarditis, valve unspecified (principal); Z95.0 Presence of cardiac pacemaker

== ENCOUNTER → 2023-01-23 | Outpatient (REF) | payer OTHER ==
[2023-01-23 14:17] LABS: HEMATOCRIT 34.1 % (36.0-47.0); MEAN CORPUSCULAR HEMOGLOBIN 29.3 pg (27.0-33.0); MEAN CORPUSCULAR HGB CONC 32.3 g/dl (32.0-36.5); MEAN CORPUSCULAR VOLUME 90.9 fl (80.0-96.0); PLATELET COUNT, AUTOMATED 312 10^3/uL (150-450); RED BLOOD COUNT 3.75 10^6/uL (4.00-5.40); WHITE BLOOD COUNT 7.5 10^3/uL (4.0-10.0)
[2023-01-23 14:29] LABS: ERYTHROCYTE SEDIMENTATION RATE 40 mm/hr (0-30)
== END ==
LOC: M SHH 13:57
PROVIDERS: ATTEND Internal Medicine Infectious Disease
DX: I38 Endocarditis, valve unspecified (principal)

== ENCOUNTER → 2023-01-30 | Outpatient (REF) | payer OTHER ==
[2023-01-30 11:34] LABS: HEMATOCRIT 32.6 % (36.0-47.0); HEMOGLOBIN 10.6 g/dl (12.0-15.5); MEAN CORPUSCULAR HEMOGLOBIN 29.4 pg (27.0-33.0); MEAN CORPUSCULAR HGB CONC 32.5 g/dl (32.0-36.5); MEAN CORPUSCULAR VOLUME 90.6 fl (80.0-96.0); PLATELET COUNT, AUTOMATED 292 10^3/uL (150-450); WHITE BLOOD COUNT 4.7 10^3/uL (4.0-10.0)
[2023-01-30 11:45] LABS: ERYTHROCYTE SEDIMENTATION RATE 23 mm/hr (0-30)
== END ==
LOC: M SHH 11:18
PROVIDERS: ATTEND Internal Medicine
DX: T82.7XXA Infection and inflammatory reaction due to other cardiac and vascular devices, implants and grafts, initial encounter (principal); I38 Endocarditis, valve unspecified; Z95.0 Presence of cardiac pacemaker

== ENCOUNTER → 2023-03-09 | Outpatient (CLI) | payer OTHER ==
[2023-03-09 15:19] LABS: BASO # 0.1 10^3/uL (0.0-0.2); BASO % 1.4 % (0.0-1.0); EOS # 0.2 10^3/uL (0.0-0.5); EOS % 2.9 % (0.0-3.0); HEMATOCRIT 36.2 % (36.0-47.0); HEMOGLOBIN 11.8 g/dl (12.0-15.5); LYMPH # 1.3 10^3/uL (1.5-5.0); LYMPH % 19.2 % (24.0-44.0); MEAN CORPUSCULAR HEMOGLOBIN 28.6 pg (27.0-33.0); MEAN CORPUSCULAR HGB CONC 32.6 g/dl (32.0-36.5); MEAN CORPUSCULAR VOLUME 87.7 fl (80.0-96.0); MONO # 0.9 10^3/uL (0.0-0.8); MONO % 13.2 % (2.0-8.0); NEUTROPHILS # 4.1 10^3/uL (1.5-8.5); PLATELET COUNT, AUTOMATED 308 10^3/uL (150-450); RED BLOOD COUNT 4.13 10^6/uL (4.00-5.40); WHITE BLOOD COUNT 6.5 10^3/uL (4.0-10.0)
[2023-03-09 15:48] LABS: ALBUMIN 3.5 G/DL (3.2-5.2); ALKALINE PHOSPHATASE 61 U/L (46-116); ALT/SGPT 24 U/L (7.0-40); AST/SGOT 22 U/L (<34); BILIRUBIN,TOTAL 0.7 MG/DL (0.3-1.2); BLOOD UREA NITROGEN 9 MG/DL (9-23); CALCIUM LEVEL 9.1 MG/DL (8.3-10.6); CARBON DIOXIDE LEVEL 26 MMOL/L (20-31); CHLORIDE LEVEL 107 MMOL/L (98-107); CREATININE FOR GFR 0.85 MG/DL (0.55-1.30); FOLATE 10.3 NG/ML (>5.4); GLOMERULAR FILTRATION RATE > 60.0 (>45); GLUCOSE, FASTING 110 MG/DL (74-106); POTASSIUM SERUM 3.5 MMOL/L (3.5-5.1); SODIUM LEVEL 143 MMOL/L (136-145); TOTAL PROTEIN 6.1 G/DL (5.7-8.2); VITAMIN B12 LEVEL 305 PG/ML (211-911)
== END ==
LOC: M PLALAB 14:18
PROVIDERS: ATTEND Student in an Organized Health Care Education/Training Program
DX: A49.02 Methicillin resistant Staphylococcus aureus infection, unspecified site (principal)

== ENCOUNTER → 2023-03-09 | Outpatient (REF) | payer OTHER | LOC: M SFHCPLAZ 14:08 | PROVIDERS: ATTEND Internal Medicine Hematology | DX: B95.61 Methicillin susceptible Staphylococcus aureus infection as the cause of diseases classified elsewhere (principal) ==

== ENCOUNTER → 2023-03-10 | Outpatient (CLI) | payer OTHER ==
[2023-03-10 13:25] LABS: BASO # 0.1 10^3/uL (0.0-0.2); BASO % 1.5 % (0.0-1.0); EOS # 0.2 10^3/uL (0.0-0.5); EOS % 3.7 % (0.0-3.0); HEMATOCRIT 35.6 % (36.0-47.0); HEMOGLOBIN 11.4 g/dl (12.0-15.5); LYMPH # 1.4 10^3/uL (1.5-5.0); LYMPH % 24.2 % (24.0-44.0); MEAN CORPUSCULAR HEMOGLOBIN 28.1 pg (27.0-33.0); MEAN CORPUSCULAR VOLUME 87.9 fl (80.0-96.0); MONO # 0.9 10^3/uL (0.0-0.8); MONO % 15.9 % (2.0-8.0); NEUTROPHILS # 3.2 10^3/uL (1.5-8.5); NEUTROPHILS % 54.4 % (36.0-66.0); PLATELET COUNT, AUTOMATED 314 10^3/uL (150-450); RED BLOOD COUNT 4.05 10^6/uL (4.00-5.40); WHITE BLOOD COUNT 5.9 10^3/uL (4.0-10.0)
[2023-03-10 13:57] LABS: ALBUMIN 3.6 G/DL (3.2-5.2); BILIRUBIN,DIRECT 0.3 MG/DL (<0.4); BILIRUBIN,TOTAL 0.8 MG/DL (0.3-1.2); CHOLESTEROL RISK RATIO 2.46 (<5); LDL CHOLESTEROL 44.4 MG/DL (<100); TOTAL PROTEIN 6.2 G/DL (5.7-8.2)
== END ==
LOC: M WUC 09:57
PROVIDERS: ATTEND Internal Medicine Interventional Cardiology
DX: I10 Essential (primary) hypertension (principal); Z79.01 Long term (current) use of anticoagulants; I48.91 Unspecified atrial fibrillation; R23.9 Unspecified skin changes

== ENCOUNTER → 2023-03-10 | Outpatient (CLI) | payer OTHER ==
[2023-03-10 19:09] LABS: PERCENT SATURATION 18.9 % (13.2-45.0)
[2023-03-10 19:10] LABS: FERRITIN 35.8 NG/ML (7.3-270.7)
== END ==
LOC: M PLALAB 14:36
PROVIDERS: ATTEND Student in an Organized Health Care Education/Training Program
DX: D64.9 Anemia, unspecified (principal)

== ENCOUNTER → 2023-03-10 | Outpatient (CLI) | payer OTHER ==
[2023-03-10 13:47] LABS: PERCENT SATURATION 19.2 % (13.2-45.0)
[2023-03-10 13:51] LABS: FERRITIN 30.1 NG/ML (7.3-270.7)
== END ==
LOC: M WUC 09:54
PROVIDERS: ATTEND Student in an Organized Health Care Education/Training Program
DX: D64.9 Anemia, unspecified (principal)

== ENCOUNTER → 2023-04-10 | Outpatient (CLI) | payer OTHER ==
[~2023-04-10] MED LIST changes: -LOSA100T45 PO; +LOSA100T46 PO
== END ==
LOC: M EKG 14:03
PROVIDERS: ATTEND Internal Medicine Interventional Cardiology
DX: I48.91 Unspecified atrial fibrillation (principal); I10 Essential (primary) hypertension; I49.5 Sick sinus syndrome

== ENCOUNTER → 2023-04-11 | Outpatient (CLI) | payer OTHER ==
[2023-04-11 17:02] LABS: BASO # 0.1 10^3/uL (0.0-0.2); BASO % 1.5 % (0.0-1.0); EOS # 0.2 10^3/uL (0.0-0.5); EOS % 2.8 % (0.0-3.0); HEMOGLOBIN 13.2 g/dl (12.0-15.5); LYMPH # 1.8 10^3/uL (1.5-5.0); MEAN CORPUSCULAR HEMOGLOBIN 28.7 pg (27.0-33.0); MONO # 0.8 10^3/uL (0.0-0.8); MONO % 11.7 % (2.0-8.0); NEUTROPHILS # 3.8 10^3/uL (1.5-8.5); NEUTROPHILS % 56.9 % (36.0-66.0); PLATELET COUNT, AUTOMATED 333 10^3/uL (150-450); WHITE BLOOD COUNT 6.7 10^3/uL (4.0-10.0)
[2023-04-11 17:28] LABS: CALCIUM LEVEL 9.2 MG/DL (8.3-10.6); CREATININE FOR GFR 1.06 MG/DL (0.55-1.30); GLOMERULAR FILTRATION RATE 55.9 (>45); POTASSIUM SERUM 3.3 MMOL/L (3.5-5.1)
[2023-04-11 17:31] LABS: FREE T4 1.26 NG/DL (0.89-1.76); THYROID STIMULATING HORMONE 0.536 uIU/ML (0.55-4.78)
== END ==
LOC: M WUC 12:47
PROVIDERS: ATTEND Nurse Practitioner Family
DX: Z79.01 Long term (current) use of anticoagulants (principal); I48.92 Unspecified atrial flutter; I10 Essential (primary) hypertension

== ENCOUNTER → 2023-05-10 | Outpatient (REF) | payer OTHER ==
[2023-05-10 17:51] LABS: HEMOGLOBIN A1c 5.3 % (4.0-6.0)
[2023-05-10 18:13] LABS: ALBUMIN 3.5 G/DL (3.2-5.2); ALKALINE PHOSPHATASE 74 U/L (46-116); ALT/SGPT 23 U/L (7.0-40); AST/SGOT 17 U/L (<34); BILIRUBIN,TOTAL 0.7 MG/DL (0.3-1.2); BLOOD UREA NITROGEN 13 MG/DL (9-23); CALCIUM LEVEL 8.8 MG/DL (8.3-10.6); CARBON DIOXIDE LEVEL 24 MMOL/L (20-31); CHLORIDE LEVEL 108 MMOL/L (98-107); CHOLESTEROL LEVEL 114 MG/DL (<200); CHOLESTEROL RISK RATIO 2.93 (<5); CREATININE FOR GFR 0.69 MG/DL (0.55-1.30); GLOMERULAR FILTRATION RATE > 60.0 (>45); GLUCOSE, FASTING 99 MG/DL (74-106); HDL CHOLESTEROL 38.9 MG/DL (>40); LDL CHOLESTEROL 52.5 MG/DL (<100); NON-HDL-C 75.1 MG/DL; POTASSIUM SERUM 3.8 MMOL/L (3.5-5.1); SODIUM LEVEL 140 MMOL/L (136-145); THYROID STIMULATING HORMONE 0.709 uIU/ML (0.55-4.78); TOTAL PROTEIN 6.5 G/DL (5.7-8.2); TRIGLYCERIDES LEVEL 113 MG/DL (<150)
[2023-05-10 18:14] LABS: FREE T4 1.18 NG/DL (0.89-1.76)
== END ==
LOC: M SFHCPLAZ 16:39
PROVIDERS: ATTEND Student in an Organized Health Care Education/Training Program
DX: E66.09 Other obesity due to excess calories (principal); B95.61 Methicillin susceptible Staphylococcus aureus infection as the cause of diseases classified elsewhere

== ENCOUNTER → 2023-05-24 | Outpatient (CLI) | payer OTHER ==
[~2023-05-24] MED LIST changes: -HYDR200T3; -HYDR200T3 PO; +HYDR200T46; +HYDR200T46 PO
[2023-05-24 17:41] LABS: BLOOD UREA NITROGEN 16 MG/DL (9-23); CALCIUM LEVEL 9.5 MG/DL (8.3-10.6); CARBON DIOXIDE LEVEL 26 MMOL/L (20-31); CHLORIDE LEVEL 107 MMOL/L (98-107); CREATININE FOR GFR 0.96 MG/DL (0.55-1.30); FREE T4 1.11 NG/DL (0.89-1.76); GLOMERULAR FILTRATION RATE > 60.0 (>45); GLUCOSE, FASTING 77 MG/DL (74-106); SODIUM LEVEL 138 MMOL/L (136-145); THYROID STIMULATING HORMONE 0.472 uIU/ML (0.55-4.78)
== END ==
LOC: M WUC 14:20
PROVIDERS: ATTEND Nurse Practitioner Family
DX: R94.6 Abnormal results of thyroid function studies (principal); E87.6 Hypokalemia

== ENCOUNTER → 2023-05-25 | Outpatient (CLI) | payer OTHER | LOC: M EKG 16:52 | PROVIDERS: ATTEND Internal Medicine Interventional Cardiology | DX: I48.91 Unspecified atrial fibrillation (principal); I10 Essential (primary) hypertension; I49.5 Sick sinus syndrome ==

== ENCOUNTER → 2023-07-18 | Outpatient (CLI) | payer OTHER ==
[2023-07-18 18:59] LABS: HEMATOCRIT 37.5 % (36.0-47.0); HEMOGLOBIN 12.2 g/dl (12.0-15.5); MEAN CORPUSCULAR HGB CONC 32.5 g/dl (32.0-36.5); MEAN CORPUSCULAR VOLUME 89.3 fl (80.0-96.0); PLATELET COUNT, AUTOMATED 310 10^3/uL (150-450); WHITE BLOOD COUNT 6.4 10^3/uL (4.0-10.0)
[2023-07-18 19:20] LABS: BLOOD UREA NITROGEN 18 MG/DL (9-23); CALCIUM LEVEL 8.8 MG/DL (8.3-10.6); CARBON DIOXIDE LEVEL 25 MMOL/L (20-31); CHLORIDE LEVEL 106 MMOL/L (98-107); CREATININE FOR GFR 0.91 MG/DL (0.55-1.30); GLOMERULAR FILTRATION RATE > 60.0 (>45); GLUCOSE, FASTING 93 MG/DL (74-106); POTASSIUM SERUM 3.8 MMOL/L (3.5-5.1); SODIUM LEVEL 141 MMOL/L (136-145)
== END ==
LOC: M LAB 18:27
PROVIDERS: ATTEND Family Medicine
DX: Z87.898 Personal history of other specified conditions (principal)

== ENCOUNTER → 2023-08-16 | Outpatient (REF) | payer OTHER | LOC: M LAB REF 13:34 | PROVIDERS: ATTEND Internal Medicine Gastroenterology | DX: K52.9 Noninfective gastroenteritis and colitis, unspecified (principal) ==

== ENCOUNTER 2023-09-05 10:01 | Emergency (ER) | payer OTHER ==
[~2023-09-05] VITALS: Ht 160 cm; Wt 89.1 kg
[2023-09-05] MEDS ORDERED: LIDOCAINE W/EPINEPHRINE 1% 20ML VIAL SC ONE (14:00)
[2023-09-05 14:26] VITALS: BP 131/67; TEMP 98.1; O2SAT 98
== END 2023-09-05 14:27 | disposition home or self-care (01) ==
LOC: M ED 10:01
DX: L02.213 Cutaneous abscess of chest wall (principal); I11.9 Hypertensive heart disease without heart failure; I48.91 Unspecified atrial fibrillation; I25.10 Atherosclerotic heart disease of native coronary artery without angina pectoris; Z95.0 Presence of cardiac pacemaker; Z79.01 Long term (current) use of anticoagulants; Z88.2 Allergy status to sulfonamides; Z88.1 Allergy status to other antibiotic agents; Z79.899 Other long term (current) drug therapy

== ENCOUNTER → 2023-09-19 | Outpatient (CLI) | payer OTHER | LOC: M WHC 07:07 | PROVIDERS: ATTEND Student in an Organized Health Care Education/Training Program | DX: Z12.31 Encounter for screening mammogram for malignant neoplasm of breast (principal) ==

== ENCOUNTER → 2023-09-20 | Outpatient (CLI) | payer OTHER ==
[2023-09-20 15:43] LABS: HEMATOCRIT 38.4 % (36.0-47.0); HEMOGLOBIN 12.3 g/dl (12.0-15.5); MEAN CORPUSCULAR HEMOGLOBIN 28.9 pg (27.0-33.0); MEAN CORPUSCULAR VOLUME 90.4 fl (80.0-96.0); PLATELET COUNT, AUTOMATED 343 10^3/uL (150-450); RED BLOOD COUNT 4.25 10^6/uL (4.00-5.40); WHITE BLOOD COUNT 6.3 10^3/uL (4.0-10.0)
[2023-09-20 16:15] LABS: C REACTIVE PROTEIN QUANTITATIV < 0.40 MG/DL (<1.0); THYROID STIMULATING HORMONE 0.679 uIU/ML (0.55-4.78)
[2023-09-20 18:58] LABS: ERYTHROCYTE SEDIMENTATION RATE 24 mm/hr (0-30)
== END ==
LOC: M PLALAB 12:55
PROVIDERS: ATTEND Student in an Organized Health Care Education/Training Program
DX: L02.818 Cutaneous abscess of other sites (principal)

== ENCOUNTER → 2023-09-29 | Outpatient (CLI) | payer OTHER | LOC: M RAD 13:06 | PROVIDERS: ATTEND Student in an Organized Health Care Education/Training Program | DX: L02.818 Cutaneous abscess of other sites (principal) ==

== ENCOUNTER → 2023-12-08 | Outpatient (CLI) | payer OTHER ==
[~2023-12-08] MED LIST changes: -EFFE150C2 PO; +EFFE150C3 PO
[2023-12-08 14:10] LABS: HEMATOCRIT 36.9 % (36.0-47.0); HEMOGLOBIN 12.2 g/dl (12.0-15.5); MEAN CORPUSCULAR HEMOGLOBIN 29.3 pg (27.0-33.0); MEAN CORPUSCULAR HGB CONC 33.1 g/dl (32.0-36.5); MEAN CORPUSCULAR VOLUME 88.5 fl (80.0-96.0); PLATELET COUNT, AUTOMATED 333 10^3/uL (150-450); RED BLOOD COUNT 4.17 10^6/uL (4.00-5.40); WHITE BLOOD COUNT 6.8 10^3/uL (4.0-10.0)
[2023-12-08 14:31] LABS: ALBUMIN 3.6 G/DL (3.2-5.2); ALKALINE PHOSPHATASE 83 U/L (46-116); ALT/SGPT 26 U/L (7.0-40); AST/SGOT 20 U/L (<34); BILIRUBIN,TOTAL 0.5 MG/DL (0.3-1.2); BLOOD UREA NITROGEN 11 MG/DL (9-23); CALCIUM LEVEL 9.1 MG/DL (8.3-10.6); CARBON DIOXIDE LEVEL 26 MMOL/L (20-31); CHLORIDE LEVEL 109 MMOL/L (98-107); GLOMERULAR FILTRATION RATE > 60.0 (>45); GLUCOSE, FASTING 95 MG/DL (74-106); SODIUM LEVEL 139 MMOL/L (136-145); TOTAL PROTEIN 6.4 G/DL (5.7-8.2)
[2023-12-08 14:33] LABS: FREE T4 1.03 NG/DL (0.89-1.76); HEMOGLOBIN A1c 5.3 % (4.0-6.0); THYROID STIMULATING HORMONE 0.815 uIU/ML (0.55-4.78)
== END ==
LOC: M LAB 13:05
PROVIDERS: ATTEND Student in an Organized Health Care Education/Training Program
DX: R42 Dizziness and giddiness (principal); Z86.79 Personal history of other diseases of the circulatory system

== ENCOUNTER 2024-01-14 00:56 | Emergency (ER) | payer OTHER ==
[~2024-01-14] VITALS: Ht 160 cm; Wt 93.3 kg
[~2024-01-14 00:56] MED LIST changes: +IRBE150T27; -IRBE150T7; -LEFL1TAB4; -LEFL1TAB4 PO; +LEFL20TA15; +LEFL20TA15 PO
[2024-01-14 04:48] VITALS: BP 164/68; TEMP 96.8; O2SAT 98
== END 2024-01-14 05:50 | disposition left against medical advice (07) ==
LOC: M ED 00:56
DX: Z53.21 Procedure and treatment not carried out due to patient leaving prior to being seen by health care provider (principal)

== ENCOUNTER → 2024-02-02 | Outpatient (REF) | payer OTHER | LOC: M SFHCWAGY 18:02 | PROVIDERS: ATTEND Nurse Practitioner Family | DX: Z12.72 Encounter for screening for malignant neoplasm of vagina (principal); N95.2 Postmenopausal atrophic vaginitis ==

== ENCOUNTER → 2024-03-29 | Outpatient (CLI) | payer MEDICARE ==
[~2024-03-29] MED LIST changes: -DILT1CAP46 PO; +DILT360C22 PO
[2024-03-29 12:56] LABS: HEMATOCRIT 40.2 % (36.0-47.0); HEMOGLOBIN 13.3 g/dl (12.0-15.5); MEAN CORPUSCULAR HEMOGLOBIN 29.5 pg (27.0-33.0); MEAN CORPUSCULAR HGB CONC 33.1 g/dl (32.0-36.5); MEAN CORPUSCULAR VOLUME 89.1 fl (80.0-96.0); PLATELET COUNT, AUTOMATED 339 10^3/uL (150-450); RED BLOOD COUNT 4.51 10^6/uL (4.00-5.40); WHITE BLOOD COUNT 7.4 10^3/uL (4.0-10.0)
[2024-03-29 13:02] LABS: ERYTHROCYTE SEDIMENTATION RATE 17 mm/hr (0-30)
== END ==
LOC: M PLALAB 10:19
PROVIDERS: ATTEND Student in an Organized Health Care Education/Training Program
DX: R61 Generalized hyperhidrosis (principal)

== ENCOUNTER → 2024-04-11 | Outpatient (CLI) | payer MEDICARE | LOC: M EKG 11:05 | PROVIDERS: ATTEND Internal Medicine Interventional Cardiology | DX: I48.0 Paroxysmal atrial fibrillation (principal); I48.4 Atypical atrial flutter ==

== ENCOUNTER → 2024-05-24 | Outpatient (CLI) | payer MEDICARE | LOC: M RAD 08:02 | PROVIDERS: ATTEND Student in an Organized Health Care Education/Training Program | DX: R14.0 Abdominal distension (gaseous) (principal) | CPT/HCPCS: 78264; A9541 ==

== ENCOUNTER → 2024-07-02 | Outpatient (CLI) | payer MEDICARE ==
[2024-07-02 13:40] LABS: HEMATOCRIT 40.8 % (36.0-47.0); HEMOGLOBIN 13.3 g/dl (12.0-15.5); MEAN CORPUSCULAR HEMOGLOBIN 29.7 pg (27.0-33.0); MEAN CORPUSCULAR HGB CONC 32.6 g/dl (32.0-36.5); MEAN CORPUSCULAR VOLUME 91.1 fl (80.0-96.0); PLATELET COUNT, AUTOMATED 320 10^3/uL (150-450); RED BLOOD COUNT 4.48 10^6/uL (4.00-5.40); WHITE BLOOD COUNT 5.2 10^3/uL (4.0-10.0)
[2024-07-02 13:43] LABS: ALBUMIN 3.8 G/DL (3.2-5.2); ALKALINE PHOSPHATASE 72 U/L (46-116); ALT/SGPT 26 U/L (7.0-40); AST/SGOT 18 U/L (<34); BILIRUBIN,TOTAL 0.4 MG/DL (0.3-1.2); BLOOD UREA NITROGEN 11 MG/DL (9-23); CALCIUM LEVEL 8.9 MG/DL (8.3-10.6); CARBON DIOXIDE LEVEL 28 MMOL/L (20-31); CHLORIDE LEVEL 109 MMOL/L (98-107); CHOLESTEROL LEVEL 120 MG/DL (<200); CREATININE FOR GFR 0.75 MG/DL (0.55-1.30); GLOMERULAR FILTRATION RATE > 60.0 (>45); GLUCOSE, FASTING 87 MG/DL (74-106); HDL CHOLESTEROL 49.9 MG/DL (>40); LDL CHOLESTEROL 53.5 MG/DL (<100); NON-HDL-C 70.1 MG/DL; POTASSIUM SERUM 4.3 MMOL/L (3.5-5.1); SODIUM LEVEL 141 MMOL/L (136-145); TOTAL PROTEIN 6.9 G/DL (5.7-8.2); TRIGLYCERIDES LEVEL 83 MG/DL (<150)
[2024-07-02 13:45] LABS: THYROID STIMULATING HORMONE 1.079 uIU/ML (0.55-4.78)
[2024-07-02 13:46] LABS: FREE T4 1.11 NG/DL (0.89-1.76)
[2024-07-02 13:56] LABS: HEMOGLOBIN A1c 5.1 % (4.0-6.0)
== END ==
LOC: M PLALAB 09:16
DX: Z13.9 Encounter for screening, unspecified (principal); Z79.899 Other long term (current) drug therapy

== ENCOUNTER 2024-12-19 10:16 | Emergency (ER) | payer MEDICARE ==
[~2024-12-19] VITALS: Ht 160 cm; Wt 96.3 kg
[2024-12-19] MEDS: ACETAMINOPHEN 325 MG TAB PO ONE (12:45)
[2024-12-19 15:15] VITALS: BP 132/89; TEMP 97.3; O2SAT 96
== END 2024-12-19 15:35 | disposition home or self-care (01) ==
LOC: M ED 10:16
DX: S52.134A Nondisplaced fracture of neck of right radius, initial encounter for closed fracture (principal); Y92.9 Unspecified place or not applicable; Y93.9 Activity, unspecified; Y99.9 Unspecified external cause status; W00.0XXA Fall on same level due to ice and snow, initial encounter; I48.91 Unspecified atrial fibrillation; G47.33 Obstructive sleep apnea (adult) (pediatric); Z88.2 Allergy status to sulfonamides; Z88.8 Allergy status to other drugs, medicaments and biological substances; Z79.01 Long term (current) use of anticoagulants; Z79.4 Long term (current) use of insulin; Z79.899 Other long term (current) drug therapy

== ENCOUNTER → 2024-12-23 | Outpatient (CLI) | payer MEDICARE | LOC: M SOG 07:49 | PROVIDERS: ATTEND Orthopaedic Surgery | DX: M25.521 Pain in right elbow (principal); M25.421 Effusion, right elbow ==

== ENCOUNTER → 2024-12-23 | Outpatient (CLI) | payer MEDICARE ==
[2024-12-23 13:56] LABS: BASO # 0.1 10^3/uL (0.0-0.2); EOS # 0.2 10^3/uL (0.0-0.5); EOS % 2.8 % (0.0-3.0); HEMATOCRIT 40.1 % (36.0-47.0); HEMOGLOBIN 12.8 g/dl (12.0-15.5); LYMPH # 1.5 10^3/uL (1.5-5.0); LYMPH % 21.6 % (24.0-44.0); MEAN CORPUSCULAR HEMOGLOBIN 28.9 pg (27.0-33.0); MEAN CORPUSCULAR HGB CONC 31.9 g/dl (32.0-36.5); MEAN CORPUSCULAR VOLUME 90.5 fl (80.0-96.0); MONO % 13.9 % (2.0-8.0); NEUTROPHILS # 4.3 10^3/uL (1.5-8.5); NEUTROPHILS % 60.6 % (36.0-66.0); PLATELET COUNT, AUTOMATED 293 10^3/uL (150-450); RED BLOOD COUNT 4.43 10^6/uL (4.00-5.40); WHITE BLOOD COUNT 7.1 10^3/uL (4.0-10.0)
[2024-12-23 14:09] LABS: ALBUMIN 3.3 G/DL (3.2-5.2); ALKALINE PHOSPHATASE 65 U/L (35-104); ALT/SGPT 26 U/L (7.0-40); AST/SGOT 18 U/L (<34); BILIRUBIN,DIRECT 0.1 MG/DL (<0.4); BILIRUBIN,TOTAL 0.3 MG/DL (0.3-1.2); BLOOD UREA NITROGEN 18 MG/DL (9-23); CALCIUM LEVEL 8.7 MG/DL (8.3-10.6); CARBON DIOXIDE LEVEL 27 MMOL/L (20-31); CHLORIDE LEVEL 108 MMOL/L (98-107); CHOLESTEROL LEVEL 116 MG/DL (<200); CHOLESTEROL RISK RATIO 2.66 (<5); GLOMERULAR FILTRATION RATE > 60.0 (>45); GLUCOSE, FASTING 94 MG/DL (74-106); HDL CHOLESTEROL 43.5 MG/DL (>40); LDL CHOLESTEROL 57.1 MG/DL (<100); NON-HDL-C 72.5 MG/DL; POTASSIUM SERUM 4.1 MMOL/L (3.5-5.1); SODIUM LEVEL 144 MMOL/L (136-145); TOTAL PROTEIN 6.2 G/DL (5.7-8.2); TRIGLYCERIDES LEVEL 77 MG/DL (<150)
[2024-12-23 14:10] LABS: TOTAL T3 142.1 NG/DL (60.0-181.0)
[2024-12-23 14:11] LABS: FREE T4 1.14 NG/DL (0.89-1.76); THYROID STIMULATING HORMONE 1.838 uIU/ML (0.55-4.78)
== END ==
LOC: M PLALAB 09:19
PROVIDERS: ATTEND Family Medicine Adult Medicine
DX: E78.5 Hyperlipidemia, unspecified (principal)

== ENCOUNTER → 2024-12-31 | Outpatient (REF) | payer MEDICARE | LOC: M SFHCPLAZ 15:33 | PROVIDERS: ATTEND Family Medicine | DX: Z53.21 Procedure and treatment not carried out due to patient leaving prior to being seen by health care provider (principal) ==

== ENCOUNTER → 2025-01-01 | Outpatient (CLI) | payer MEDICARE | LOC: M PLAIMG 15:28 | DX: S59.909A Unspecified injury of unspecified elbow, initial encounter (principal); W18.30XA Fall on same level, unspecified, initial encounter; Y92.009 Unspecified place in unspecified non-institutional (private) residence as the place of occurrence of the external cause ==

== ENCOUNTER → 2025-01-08 | Outpatient (CLI) | payer MEDICARE ==
[2025-01-08 15:59] LABS: ALBUMIN 3.1 G/DL (3.2-5.2); ALKALINE PHOSPHATASE 64 U/L (35-104); ALT/SGPT 30 U/L (7.0-40); AST/SGOT 20 U/L (<34); BILIRUBIN,TOTAL 0.6 MG/DL (0.3-1.2); BLOOD UREA NITROGEN 13 MG/DL (9-23); CALCIUM LEVEL 8.9 MG/DL (8.3-10.6); CARBON DIOXIDE LEVEL 26 MMOL/L (20-31); CHLORIDE LEVEL 111 MMOL/L (98-107); CREATININE FOR GFR 0.69 MG/DL (0.55-1.30); GLOMERULAR FILTRATION RATE > 60.0 (>45); GLUCOSE, FASTING 84 MG/DL (74-106); MAGNESIUM LEVEL 1.8 MG/DL (1.8-2.4); POTASSIUM SERUM 3.8 MMOL/L (3.5-5.1); SODIUM LEVEL 143 MMOL/L (136-145); TOTAL 25(OH) VITAMIN D 46.4 NG/ML (20.0-100.0); TOTAL PROTEIN 6.3 G/DL (5.7-8.2)
[2025-01-08 16:01] LABS: FREE T4 1.35 NG/DL (0.89-1.76)
[2025-01-08 16:07] LABS: BASO % 0.6 % (0.0-1.0); EOS # 0.1 10^3/uL (0.0-0.5); EOS % 2.6 % (0.0-3.0); HEMATOCRIT 39.5 % (36.0-47.0); HEMOGLOBIN 12.7 g/dl (12.0-15.5); LYMPH # 2.5 10^3/uL (1.5-5.0); MEAN CORPUSCULAR HEMOGLOBIN 28.3 pg (27.0-33.0); MEAN CORPUSCULAR HGB CONC 32.2 g/dl (32.0-36.5); MONO # 0.8 10^3/uL (0.0-0.8); MONO % 16.1 % (2.0-8.0); NEUTROPHILS # 1.6 10^3/uL (1.5-8.5); NEUTROPHILS % 31.3 % (36.0-66.0); PLATELET COUNT, AUTOMATED 284 10^3/uL (150-450); RED BLOOD COUNT 4.49 10^6/uL (4.00-5.40)
[2025-01-08 16:31] LABS: HEMOGLOBIN A1c 5.4 % (4.0-6.0)
== END ==
LOC: M PLALAB 10:49
DX: G47.33 Obstructive sleep apnea (adult) (pediatric) (principal); S59.909A Unspecified injury of unspecified elbow, initial encounter; W18.30XA Fall on same level, unspecified, initial encounter; Y92.009 Unspecified place in unspecified non-institutional (private) residence as the place of occurrence of the external cause; Z13.21 Encounter for screening for nutritional disorder; Z13.1 Encounter for screening for diabetes mellitus; F33.9 Major depressive disorder, recurrent, unspecified

== ENCOUNTER → 2025-01-14 | Outpatient (CLI) | payer MEDICARE | LOC: M SOG 07:55 | PROVIDERS: ATTEND Orthopaedic Surgery | DX: M25.521 Pain in right elbow (principal) ==

== ENCOUNTER → 2025-02-11 | Outpatient (CLI) | payer MEDICARE | LOC: M SOG 07:50 | PROVIDERS: ATTEND Orthopaedic Surgery | DX: S52.131D Displaced fracture of neck of right radius, subsequent encounter for closed fracture with routine healing (principal); M25.511 Pain in right shoulder ==

== ENCOUNTER → 2025-03-04 | Outpatient (CLI) | payer MEDICARE | LOC: M WHC 13:03 | PROVIDERS: ATTEND Obstetrics & Gynecology | DX: Z12.31 Encounter for screening mammogram for malignant neoplasm of breast (principal); R92.333 Mammographic heterogeneous density, bilateral breasts ==

== ENCOUNTER → 2025-03-25 | Outpatient (CLI) | payer MEDICARE | LOC: M SOG 07:50 | PROVIDERS: ATTEND Orthopaedic Surgery | DX: S52.131D Displaced fracture of neck of right radius, subsequent encounter for closed fracture with routine healing (principal); M25.521 Pain in right elbow; W18.30XD Fall on same level, unspecified, subsequent encounter ==

== ENCOUNTER → 2025-04-08 | Outpatient (CLI) | payer MEDICARE | LOC: M RAD 11:41 | DX: M54.50 Low back pain, unspecified (principal) ==

== ENCOUNTER → 2025-09-19 | Outpatient (CLI) | payer MEDICARE ==
[~2025-09-19] MED LIST changes: -AMIO200T49 PO; +AMIO200T54 PO
[2025-09-19 15:14] LABS: ALT/SGPT 23.0 U/L (7.0-40); AST/SGOT 27.0 U/L (<34); CALCIUM LEVEL 8.9 MG/DL (8.3-10.6); CARBON DIOXIDE LEVEL 25.0 MMOL/L (20-31); CHLORIDE LEVEL 106.0 MMOL/L (98-107); CHOLESTEROL LEVEL 121.0 MG/DL (<200); CHOLESTEROL RISK RATIO 2.32 (<5); CREATININE FOR GFR 0.87 MG/DL (0.55-1.30); GLOMERULAR FILTRATION RATE 74.4 (>45); LDL CHOLESTEROL 53.2 MG/DL (<100); NON-HDL-C 69.0 MG/DL; POTASSIUM SERUM 4.2 MMOL/L (3.5-5.1); SODIUM LEVEL 141.0 MMOL/L (136-145); TRIGLYCERIDES LEVEL 79.0 MG/DL (<150)
[2025-09-19 15:16] LABS: FREE T4 1.17 NG/DL (0.89-1.76); THYROXINE (T4) 7.5 UG/DL (4.5-10.9)
== END ==
LOC: M WUC 11:51
PROVIDERS: ATTEND Internal Medicine Interventional Cardiology
DX: I10 Essential (primary) hypertension (principal); E78.5 Hyperlipidemia, unspecified; I49.5 Sick sinus syndrome